=== PATIENT | female | born 1970 | race American Indian/Alaskan Native ===

== ENCOUNTER 2016-12-05 21:04 | Inpatient (IN) | payer OTHER ==
[2016-12-05] MEDS ORDERED: Sodium Chloride 0.9% 1,000 ML IV ONE (22:02)
[2016-12-05] MEDS ORDERED: Sodium Chloride 0.9% 1,000 ML ONE (22:17)
[2016-12-05 22:33] LABS: RBC URINE 1 /hpf (0-3); URINE BACTERIA RARE (<OCC); URINE BILIRUBIN NEGATIVE (NEGATIVE); URINE BLOOD NEGATIVE (NEGATIVE); URINE COLOR Yellow (YELLOW); URINE GLUCOSE (UA) NORMAL (Normal); URINE KETONE NEGATIVE (NEGATIVE); URINE LEUKOCYTE ESTERASE NEG Leu/uL (Negative); URINE PROTEIN NEGATIVE (NEGATIVE); URINE UROBILINOGEN NORMAL mg/dL (0.2-1.0); WBC URINE 2 /hpf (0-5)
[2016-12-05 22:40] LABS: EOS # 0.1 K/uL (0.0-0.7); HEMATOCRIT 44.7 % (34.0-47.0); LYMPH # 0.5 K/uL (1.0-4.3); MONO # 0.1 K/uL (0.0-0.8); NRBC % 0.3 % (0.0-2.0); RED CELL DISTRIBUTION WIDTH 13.4 % (11.5-14.5)
[2016-12-05 22:43] LABS: VENOUS BLOOD GAS BASE EXCESS 0.3 mmol/L (0.0-2.0); VENOUS BLOOD GAS PCO2 48 mmHg (40-60); VENOUS BLOOD PH 7.35 (7.32-7.43)
[2016-12-05 22:46] LABS: BASO % 0.4 % (0.0-2.0); EOS % 4.7 % (0.0-4.0); LYMPH % 32.1 % (20.0-40.0); MEAN CELL VOLUME 95.6 fL (81.0-99.0); MEAN CORPUSCULAR HEMOGLOBIN 31.3 pg (27.0-31.0); MEAN CORPUSCULAR HGB CONC 32.8 g/dL (33.0-37.0); MEAN PLATELET VOLUME 9.8 fL (7.2-11.7); MONO % 6.1 % (0.0-10.0)
[2016-12-05 22:47] LABS: INR 1.1
[2016-12-05 22:50] LABS: WHITE BLOOD COUNT 1.7 K/uL (4.8-10.8)
[2016-12-05 22:57] LABS: POTASSIUM 3.8 mmol/L (3.6-5.2)
[2016-12-05 22:59] LABS: ALB/GLOB RATIO 1.2 (1.0-2.1); BILIRUBIN,TOTAL 0.6 mg/dL (0.2-1.3)
[2016-12-05 23:00] LABS: CALCIUM 9.2 mg/dl (8.6-10.4)
[2016-12-06] MEDS ORDERED: cefTRIAXone 2 GM in Sodium Chloride 0.9% 100 ML IVPB STA (00:52)
[2016-12-06] MEDS ORDERED: Vancomycin 1 GM 1 GM/250 ML BAG IVPB STA (00:53)
[2016-12-06] MEDS ORDERED: Sodium Chloride 0.9% 1,000 ML IV ONE (00:53)
[2016-12-06 01:04] LABS: FLUID TYPE SPINAL FLUID
--- NOTE | 2016-12-06 01:13 | C.PDOC ---
Time Seen by Provider: 12/05/16 21:50 Chief Complaint (Nursing): Fever History Per: Patient, Family Onset/Duration Of Symptoms: Days (2) Current Symptoms Are (Timing): Still Present Location Of Pain: Headache Associated Symptoms: Fever, Sore Throat, Neck Pain Severity: Moderate Recent travel outside of the [place]: No Additional History Per: Prior Records Past Medical History Reviewed: Historical Data, Nursing Documentation, Vital Signs Vital Signs: Last Vital Signs Temp 102.7 F H 12/05/16 21:19 Pulse 94 H 12/05/16 21:19 Resp 20 12/05/16 21:19 BP 95/58 L 12/05/16 21:19 Pulse Ox 99 12/06/16 01:15 - Medical History PMH: No Chronic Diseases Surgical History: No Surg Hx Family History: States: Unknown Family Hx - Social History Hx Alcohol Use: No Hx Substance Use: No - Immunization History Hx Tetanus Toxoid Vaccination: No Hx Influenza Vaccination: No Hx Pneumococcal Vaccination: No Review Of Systems Except As Marked, All Systems Reviewed And Found Negative. Constitutional: Positive for: Fever, Malaise ENT: Positive for: Throat Pain. Negative for: Ear Pain, Nose Congestion Cardiovascular: Negative for: Chest Pain Respiratory: Negative for: Cough, Shortness of Breath Gastrointestinal: Negative for: Vomiting, Abdominal Pain, Diarrhea Genitourinary: Positive for: Other (Pt states that she has had a bartholyn cyst for years. her doctor recently placed her on Bactrim for it. ). Negative for: Dysuria Musculoskeletal: Positive for: Neck Pain Skin: Negative for: Rash Neurological: Positive for: Headache. Negative for: Weakness, Numbness, Seizures, Altered Mental Status Psych: Negative for: Psychosis Physical Exam - Physical Exam Appears: Non-toxic, No Acute Distress Skin: Normal Color, Warm, Dry, No Rash Head: Atraumatic, Normacephalic Eye(s): bilateral: PERRL, EOMI Ear(s): Bilateral: Normal Throat: Erythema, No Exudate, No Drooling, No Mass Neck: Normal ROM, Supple Cardiovascular: Rhythm Regular Respiratory: Normal Breath Sounds, No Accessory Muscle Use Gastrointestinal/Abdominal: Soft, No Tenderness Back: No CVA Tenderness Pelvic: Other (left bartholyn cyst, but no tenderness, drainage or surrounding erythema) Extremity: Normal ROM, No Deformity Neurological/Psych: Oriented x3, Normal Speech, Normal Motor, Normal Sensation ED Course And Treatment - Laboratory Results Result Diagrams: 12/05/16 22:36 12/05/16 22:36 Lab Interpretation: Abnormal Interpretation Of Abnormal: Low WBC count Urine POC: Negative O2 Sat by Pulse Oximetry: 99 Pulse Ox Interpretation: Normal - Radiology CXR: Interpreted by Me, Viewed By Me CXR Interpretation: Yes: No Acute Disease - CT Scan/US CT head Other Rad Studies (CT/US): Read By Radiologist, Radiology Report Reviewed CT/US Interpretation: No acute intracranial hemorrhage, or suspcioius mass effect. Lumbar Puncture - Time Out Time Out: Side verified, Site verified, Patient ID confirmed, Sterile procedures obs. - Consent obtained Consent obtained: Verbal - Performed by Performed by: Attending Physician - Indications Indication(s): Suspected menigitis - Contraindications Contraindications: None - Patient Position Patient position: Sitting - Local Anesthetic Location: L4/L5 - Fluid Appearance Fluid Appearance: Clear - Post-procedure Post-procedure: No leak/bld from LP site, Dressing applied, Patient laid flat, Neurovascular status nml - CSF Studies CSF Studies: Cell count/diff, Glucose, Protein, Gram stain, culture/sensitivity , Antigens - Complications Complications: None - Patient tolerated procedure Patient tolerated procedure: Well Disposition - Disposition Disposition Time: 01:00 Condition: FAIR - Clinical Impression Clinical Impression: Fever, Headache, Decreased white blood cell count Physician Patient Turnover Patient Signed Over To: Tyson Coello Handoff Comments: to f/up CSF results and admit pt.
[2016-12-06] MEDS ORDERED: Acyclovir 500 MG in Dextrose 5% In Water 100 ML IV STA (01:16)
[2016-12-06] MEDS ORDERED: Sodium Chloride 0.9% 1,000 ML ONE (01:44)
[2016-12-06] MEDS ORDERED: Vancomycin 1 GM 1 GM/250 ML BAG IVPB ONE ×2 (01:44→19:16)
[2016-12-06 02:37] LABS: CSF COMMENT CLEAR; CSF NEUTROPHIL 3 % (0-0); CSF TOTAL COUNT 10 (0-0)
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
--- NOTE | 2016-12-06 08:26 | CT ---
PROCEDURE: CT HEAD WITHOUT CONTRAST. HISTORY: Headache, fever COMPARISON: None available. TECHNIQUE: Axial computed tomography images were obtained through the head/brain without intravenous contrast. Radiation dose: Total exam DLP = 833 mGy-cm. This CT exam was performed using one or more of the following dose reduction techniques: Automated exposure control, adjustment of the mA and/or kV according to patient size, and/or use of iterative reconstruction technique. FINDINGS: HEMORRHAGE: No intracranial hemorrhage. BRAIN: No mass effect or edema. No atrophy or chronic microvascular ischemic changes. VENTRICLES: Unremarkable. No hydrocephalus. CALVARIUM: Unremarkable. PARANASAL SINUSES: Unremarkable as visualized. No significant inflammatory changes. MASTOID AIR CELLS: Unremarkable as visualized. No inflammatory changes. OTHER FINDINGS: None. IMPRESSION: No acute intracranial abnormality. If headache or focal neurologic deficit persists, consider MRI. These findings were preliminarily reported at 11:52 p.m. on 12/05/[address] Anna Marie Fitzpatrick from [facility].
--- NOTE | 2016-12-06 10:22 | RAD ---
HISTORY: Fever COMPARISON: No prior. FINDINGS: LUNGS: The lungs are well inflated and clear. PLEURA: No significant pleural effusion identified, no pneumothorax apparent. CARDIOVASCULAR: Normal. OSSEOUS STRUCTURES: No significant abnormalities. VISUALIZED UPPER ABDOMEN: Normal. OTHER FINDINGS: None. IMPRESSION: No active pulmonary disease.
[2016-12-06 11:32] LABS: CHLORIDE 99 mmol/L (98-107)
[2016-12-06 11:33] LABS: POTASSIUM 3.9 mmol/L (3.6-5.2); SODIUM 133 mmol/L (132-148)
[2016-12-06 11:35] LABS: ALB/GLOB RATIO 1.1 (1.0-2.1); ALKALINE PHOSPHATASE 45 U/L (38-126); AST/SGOT 50 U/L (14-36); BILIRUBIN,TOTAL 0.3 mg/dL (0.2-1.3); BLOOD UREA NITROGEN 7 mg/dL (7-17); CARBON DIOXIDE 23 mmol/L (22-30); GFR AFRICAN-AMERICAN > 60; TOTAL PROTEIN 6.2 g/dL (6.3-8.3)
[2016-12-06 11:36] LABS: ALT/SGPT 35 U/L (9-52); CALCIUM 7.8 mg/dl (8.6-10.4); GLUCOSE,RANDOM 113 mg/dL (65-105); MAGNESIUM 1.7 mg/dL (1.6-2.3); PHOSPHOROUS 2.3 mg/dL (2.5-4.5)
[2016-12-06 12:23] LABS: H INFLUENZAE B NEGATIVE (NEGATIVE); N MENINGITIS ACY/W135 NEGATIVE (NEGATIVE); N MENINGITIS B/ECOLI K1 NEGATIVE (NEGATIVE)
[2016-12-06 13:38] LABS: BASO % 0.3 % (0.0-2.0); EOS # 0.1 K/uL (0.0-0.7); HEMATOCRIT 38.4 % (34.0-47.0); LYMPH # 0.6 K/uL (1.0-4.3); LYMPH % 33.8 % (20.0-40.0); MEAN CELL VOLUME 95.1 fL (81.0-99.0); MEAN CORPUSCULAR HEMOGLOBIN 31.6 pg (27.0-31.0); MEAN CORPUSCULAR HGB CONC 33.2 g/dL (33.0-37.0); MEAN PLATELET VOLUME 10.4 fL (7.2-11.7); MONO # 0.1 K/uL (0.0-0.8); MONO % 3.8 % (0.0-10.0); NRBC % 0.3 % (0.0-2.0); RED CELL DISTRIBUTION WIDTH 13.3 % (11.5-14.5)
[2016-12-06 13:51] LABS: WHITE BLOOD COUNT 1.7 K/uL (4.8-10.8)
--- NOTE | 2016-12-06 14:32 | CP.PCM.PN ---
<Kanika Jalloh V - Last Filed: 12/06/16 17:55> Objective - Vital Signs/Intake and Output Vital Signs (last 24 hours): Temp Pulse Resp BP Pulse Ox 99.0 F 78 18 149/71 98 12/06/16 17:18 12/06/16 17:30 12/06/16 17:18 12/06/16 17:18 12/06/16 17:18 - Medications Medications: Current Medications Acetaminophen (Tylenol 325mg Tab) 650 mg PO Q6 PRN PRN Reason: Fever >100.4 F Last Admin: 12/06/16 12:57 Dose: 650 mg Sodium Chloride (Sodium Chloride 0.9%) 1,000 mls @ 100 mls/hr IV .Q10H YAYA Last Admin: 12/06/16 15:13 Dose: 100 mls/hr Ceftriaxone Sodium 1 gm/ (Sodium Chloride) 100 mls @ 100 mls/hr IVPB 2300 YAYA Saccharomyces Boulardii (Florastor) 250 mg PO BID YAYA - Labs Labs: 12/06/16 15:26 12/06/16 11:14 PT 12.8 SECONDS (9.7-12.2) H 12/05/16 22:36 INR 1.1 12/05/16 22:36 APTT 52 SECONDS (21-34) H 12/05/16 22:36 Assessment and Plan (1) SIRS (systemic inflammatory response syndrome) Assessment & Plan: Criteria: leukopenia and febrile Workup to determine if source of infection ordered for Blood cultures, Urine studies, procalcitonin, Lactic acid, ESR, CRP , LDH Tylenol 650mg PO Q 6 hour PRN 100.3F Patient completed 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 Discussed with ID, c/w Rocephin 1 gram IV qdaily, hold Acyclovir until HSV titers come back Start Florastor 250mg PO bid Status: Acute (2) Neutropenic fever Assessment & Plan: Consult: Dr Elvia Fountain (heme-onc) on board-->help appreciated Consult: Dr Hernandez (ID) on board-->help appreciated Ordered for ESR, CRP, LDH, HIV, Hepatitis panel, UDS, and Abdominal US Patient completed course of bactrim as outpatient for ovarian cyst In the ED, patient had received dose of Rocephin, Acyclovir, and Vancomycin Neutropenic precautions Status: Acute (3) Thrombocytopenia Assessment & Plan: D/c Heparin secondary to thrombocytopenia Ordered for HIT antibodies Status: Acute (4) Transaminitis Assessment & Plan: Ordered for hepatitis panel Ordered for Abdominal US Ordered for UDS Status: Acute (5) Headache Assessment & Plan: Consult: A Curtis (Neurology) on board-->help appreciated Per neurology, likely secondary to viral prodrome, not bacterial meningitis, LP consistent with mild viral syndrome Head CT (12/06/16): no acute intracranial abnormality, if headache or focal neurologic deficit persists, consider MRI Recommended for Aspirin (will hold secondary to thrombocytopenia) Fioricet 1-2 tab PRN for acute onset of headache Neutopenic precautions; f/u heme-onc Status: Acute (6) Viral syndrome Assessment & Plan: Consult: A Curtis (Neurology) on board-->help appreciated Per neurology, likely secondary to viral prodrome, not bacterial meningitis, LP consistent with mild viral syndrome Head CT (12/06/16): no acute intracranial abnormality, if headache or focal neurologic deficit persists, consider MRI Recommended for Aspirin (will hold secondary to thrombocytopenia) Fioricet 1-2 tab PRN for acute onset of headache Neutopenic precautions; f/u heme-onc Status: Acute (7) Prophylactic measure Assessment & Plan: D/c Heparin secondary to thrombocytopenia D/c GI ppx secondary to SE worsening thrombocytopenia Status: Acute Attending/Attestation - Attestation I have personally seen and examined this patient.: Yes I have fully participated in the care of the patient.: Yes I have reviewed all pertinent clinical information, including history, physical exam and plan: Yes <Alphonso Frances - Last Filed: 12/06/16 20:52> Subjective - Date & Time of Evaluation Date of Evaluation: 12/06/16 Time of Evaluation: 10:00 - Subjective Subjective: Medicine Note (PGY1) : Dr. Jalloh's Service Patient was seen and examined in ED. Patient states she is doing better. Patient reports migraine in the right temporal region, photophobia, malaise, fever, sore throat and that her neck pain has resolved. Patient denies chest pain, nausea, vomiting, back pain, flank pain, diarrhea, recent travels, urinary symptoms. sick contacts but does admit to being around her 2 year old grandchild. Objective - Vital Signs/Intake and Output Vital Signs (last 24 hours): Temp Pulse Resp BP Pulse Ox 100 F H 89 18 96/58 L 99 12/06/16 12:57 12/06/16 12:17 12/06/16 12:17 12/06/16 12:17 12/06/16 12:17 - Medications Medications: Current Medications Acetaminophen (Tylenol 325mg Tab) 650 mg PO Q6 PRN PRN Reason: Fever >100.4 F Last Admin: 12/06/16 12:57 Dose: 650 mg Famotidine (Pepcid) 20 mg PO BID [facility] Last Admin: 12/06/16 10:31 Dose: 20 mg Heparin Sodium (Porcine) (Heparin) 5,000 units SC Q8 [facility] Last Admin: 12/06/16 06:09 Dose: 5,000 units Ceftriaxone Sodium 1 gm/ (Sodium Chloride) 100 mls @ 100 mls/hr IVPB DAILY [facility] - Labs Labs: 12/06/16 13:18 12/06/16 11:14 PT 12.8 SECONDS (9.7-12.2) H 12/05/16 22:36 INR 1.1 12/05/16 22:36 APTT 52 SECONDS (21-34) H 12/05/16 22:36 - Constitutional Appears: Well, No Acute Distress - Head Exam Head Exam: NORMAL INSPECTION, NORMOCEPHALIC - Eye Exam Eye Exam: EOMI, Normal appearance - ENT Exam ENT Exam: Mucous Membranes Moist, Normal Exam - Respiratory Exam Respiratory Exam: Clear to Ausculation Bilateral, NORMAL BREATHING PATTERN - Cardiovascular Exam Cardiovascular Exam: REGULAR RHYTHM, +S1, +S2 - GI/Abdominal Exam GI & Abdominal Exam: Soft, Normal Bowel Sounds - Extremities Exam Extremities Exam: Normal Capillary Refill, Normal Inspection - Neurological Exam Neurological Exam: Alert, Awake, Oriented x3 - Psychiatric Exam Psychiatric exam: Normal Affect, Normal Mood - Skin Skin Exam: Dry, Normal Color, Warm Assessment and Plan (1) Fever Assessment & Plan: Hematology and Oncology Consult (Dr. Fountain) ---> help appreciated Neurology consult (Dr. Jerica Acevedo): * As per neurology, headache is secondary to a viral prodrome not bacterial meningitis * ASA 81MG PO daily * Monitor electrolytes and correct accordingly * Fioricet 1-2 tab at acute onset of headache prn Infectious disease consult (Dr. Hernandez)---> help appreciated * No evidence of encephalopathy at this time * may d/c antibiotics if cultures negative Neutropenic precautions: * HIV (Negative) * Hepatitis panel (Negative) * Influenza (Negative) * H. Influenza (Negative) * Meningitis (Negative) * ESR (1), CRP(5.92), LDH(875) Lumbar Puncture in the ED: ( Negative) CT Head: Negative for Intracranial hemorrhage, mass or edema and no atrophy chronic microvascular Chest X-ray: No evidence of active disease IV fluids: NS 1000ml @100cc/hr Acetaminophen 650mg PO Q6 prn Acyclovir 500mg IV q8h Rocephin 2mg Q12H Vancomycin 1000mg IVBP Q12H Status: Acute (2) Encephalitis Assessment & Plan: CT Head: Negative for Intracranial hemorrhage, mass or edema Neurology consult (Dr. Jerica Acevedo): * As per neurology, headache is secondary to a viral prodrome not bacterial meningitis * ASA 81MG PO daily * Monitor electrolytes and correct accordingly * Fioricet 1-2 tab at acute onset of headache prn Status: Acute (3) Neutropenic fever Assessment & Plan: Hematology and Oncology consulted (Dr. Fountain)---> Help appreciated Infectious disease consult (Dr. Hernandez)---> help appreciated * No evidence of encephalopathy at this time * may d/c antibiotics if cultures negative HIV (Negative) Hepatitis panel (Negative) Influenza (Negative) H. Influenza (Negative) Meningitis (Negative) ESR (1), CRP(5.92), LDH(875) Patient recently completed a week course of Bactrim for Ovarian cyst Pending blood culture results, l Lactic acid: 1.0 Procalcitonin: <0.05 UA: negative for UTI Status: Acute (4) Sepsis Assessment & Plan: Meet SIRS criteria: Fever : 102 Neutropenic: 1.7 Acyclovir 500mg IV q8h Rocephin 2mg Q12H Vancomycin 1000mg IVBP Q12H Status: Acute (5) Transaminitis Assessment & Plan: Abdominal US: The gall bladder is partially contracted. No Cholelithiasis or bililary dilatation Hepatitis panel (Negative) UDS negative Status: Acute (6) Sore throat Assessment & Plan: Chest X-ray: No evidence of active disease Group A Beta Strep Ag : Negative Group B strep antigen : Negative S. Pneumoniae Anitgen : Negative Status: Acute (7) Prophylactic measure Assessment & Plan: Florastor 250mg PO BID Status: Acute
[2016-12-06] MEDS ORDERED: cefTRIAXone IV 1 gm in Dextros 50 ML IVPB ONE (14:41)
[2016-12-06] MEDS: Sodium Chloride 0.9% 1,000 ML IV SCH (15:13)
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
[2016-12-06 15:43] LABS: BASO % 0.6 % (0.0-2.0); EOS # 0.1 K/uL (0.0-0.7); EOS % 8.7 % (0.0-4.0); HEMATOCRIT 38.1 % (34.0-47.0); LYMPH # 0.5 K/uL (1.0-4.3); MEAN CELL VOLUME 95.2 fL (81.0-99.0); MEAN CORPUSCULAR HEMOGLOBIN 31.4 pg (27.0-31.0); MEAN PLATELET VOLUME 10.1 fL (7.2-11.7); MONO # 0.1 K/uL (0.0-0.8); MONO % 3.5 % (0.0-10.0)
[2016-12-06 15:51] LABS: WHITE BLOOD COUNT 1.7 K/uL (4.8-10.8)
--- NOTE | 2016-12-06 16:28 | US ---
HISTORY: Elevated LFTs COMPARISON: None. TECHNIQUE: Grayscale imaging was performed. FINDINGS: LIVER: Measures 14.21 cm. Normal echogenicity of the liver parenchyma. No mass. No intrahepatic bile duct dilatation. GALLBLADDER: Partially contracted. No gallstones. COMMON BILE DUCT: Measures 2.1 mm. No stones. No dilatation. PANCREAS: Unremarkable as visualized. No mass. No ductal dilatation. RIGHT KIDNEY: Measures 9.9cm. Normal echogenicity. No calculus, mass, or hydronephrosis. LEFT KIDNEY: Measures 10.0cm. Normal echogenicity. No calculus, mass, or hydronephrosis. SPLEEN: Normal in size and contour. No mass. AORTA: No aneurysmal dilatation. IVC: Unremarkable. OTHER FINDINGS: None. IMPRESSION: The gallbladder is partially contracted. No cholelithiasis or biliary dilatation.
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
[2016-12-06 19:06] LABS: INR 1.1
[2016-12-06] MEDS: Saccharomyces Boulardi 250 mg Cap PO SCH (22:29)
[2016-12-06] MEDS: Acyclovir 500 MG in Sodium Chloride 0.9% 100 ML IV SCH (22:30)
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
[2016-12-07] MEDS: Acyclovir 500 MG in Sodium Chloride 0.9% 100 ML IV SCH ×3 (02:13→18:35)
[2016-12-07] MEDS: Sodium Chloride 0.9% 1,000 ML IV SCH ×2 (02:15→11:15)
[2016-12-07] MEDS: cefTRIAXone 2 GM in Sodium Chloride 0.9% 100 ML IVPB SCH ×2 (02:17→13:43)
[2016-12-07 06:16] LABS: RBC URINE < 1 /hpf (0-3); URINE BACTERIA RARE (<OCC); URINE BILIRUBIN NEGATIVE (NEGATIVE); URINE BLOOD 2+ (NEGATIVE); URINE COLOR Straw (YELLOW); URINE GLUCOSE (UA) NORMAL (Normal); URINE KETONE NEGATIVE (NEGATIVE); URINE LEUKOCYTE ESTERASE NEG Leu/uL (Negative); URINE PROTEIN NEGATIVE (NEGATIVE); URINE UROBILINOGEN NORMAL mg/dL (0.2-1.0); WBC URINE 1 /hpf (0-5)
[2016-12-07] MEDS: Saccharomyces Boulardi 250 mg Cap PO SCH ×2 (09:43→18:35)
--- NOTE | 2016-12-07 11:10 | RAD ---
HISTORY: Fever COMPARISON: No prior. TECHNIQUE: Chest PA and lateral FINDINGS: LUNGS: No active pulmonary disease. Bibasilar breast and nipple shadows. Small nodular density at the right lung apex may represent confluence of shadows with ribs and vessels. PLEURA: No significant pleural effusion identified. No pneumothorax apparent. CARDIOVASCULAR: Normal. OSSEOUS STRUCTURES: No significant abnormalities. VISUALIZED UPPER ABDOMEN: Normal. OTHER FINDINGS: None. IMPRESSION: No active pulmonary disease. Bibasilar breast and nipple shadows. Small nodular density at the right lung apex may represent confluence of shadows with ribs and vessels.
[2016-12-07 12:08] LABS: BASO % 0.5 % (0.0-2.0); EOS # 0.1 K/uL (0.0-0.7); EOS % 7.8 % (0.0-4.0); HEMATOCRIT 38.1 % (34.0-47.0); LYMPH # 1.2 K/uL (1.0-4.3); LYMPH % 62.9 % (20.0-40.0); MEAN CELL VOLUME 94.5 fL (81.0-99.0); MEAN CORPUSCULAR HEMOGLOBIN 31.4 pg (27.0-31.0); MEAN CORPUSCULAR HGB CONC 33.3 g/dL (33.0-37.0); MEAN PLATELET VOLUME 9.5 fL (7.2-11.7); MONO # 0.1 K/uL (0.0-0.8); MONO % 7.1 % (0.0-10.0); NRBC % 0.2 % (0.0-2.0); RED CELL DISTRIBUTION WIDTH 13.1 % (11.5-14.5)
[2016-12-07 12:13] LABS: WHITE BLOOD COUNT 1.9 K/uL (4.8-10.8)
[2016-12-07 12:35] LABS: CHLORIDE 103 mmol/L (98-107); SODIUM 136 mmol/L (132-148)
[2016-12-07 12:37] LABS: ALB/GLOB RATIO 1.1 (1.0-2.1); AST/SGOT 53 U/L (14-36); BILIRUBIN,TOTAL 0.3 mg/dL (0.2-1.3); CARBON DIOXIDE 25 mmol/L (22-30); GFR AFRICAN-AMERICAN > 60; TOTAL PROTEIN 6.2 g/dL (6.3-8.3)
[2016-12-07 12:38] LABS: ALKALINE PHOSPHATASE 38 U/L (38-126); ALT/SGPT 32 U/L (9-52); BLOOD UREA NITROGEN 4 mg/dL (7-17); CALCIUM 8.1 mg/dl (8.6-10.4); GLUCOSE,RANDOM 114 mg/dL (65-105); MAGNESIUM 1.9 mg/dL (1.6-2.3); PHOSPHOROUS 2.7 mg/dL (2.5-4.5)
--- NOTE | 2016-12-07 13:30 | CP.PCM.PN ---
<Kanika Jalloh V - Last Filed: 12/07/16 22:26> Objective - Vital Signs/Intake and Output Vital Signs (last 24 hours): Temp Pulse Resp BP Pulse Ox 98 F 68 20 101/61 99 12/07/16 16:00 12/07/16 18:44 12/07/16 18:44 12/07/16 18:44 12/07/16 18:44 Intake and Output: 12/07/16 12/08/16 18:59 06:59 Intake Total 1300 Output Total 600 Balance 700 - Medications Medications: Current Medications Acetaminophen/Butalbital/Caffeine (Fioricet) 1 tab PO Q6 PRN PRN Reason: headache Last Admin: 12/07/16 16:14 Dose: 1 tab Sodium Chloride (Sodium Chloride 0.9%) 1,000 mls @ 100 mls/hr IV .Q10H [facility] Last Admin: 12/07/16 11:15 Dose: Not Given Acyclovir 500 mg/ Sodium (Chloride) 100 mls @ 100 mls/hr IV Q8H [facility] Last Admin: 12/07/16 18:35 Dose: 100 mls/hr Vancomycin HCl 1,000 mg/ (Sodium Chloride) 250 mls @ 166.6 mls/hr IVPB Q12H [facility] Last Admin: 12/07/16 20:13 Dose: 166.6 mls/hr Ceftriaxone Sodium 2 gm/ (Sodium Chloride) 100 mls @ 100 mls/hr IVPB Q12H [facility] Last Admin: 12/07/16 13:43 Dose: 100 mls/hr Saccharomyces Boulardii (Florastor) 250 mg PO BID [facility] Last Admin: 12/07/16 18:35 Dose: 250 mg - Labs Labs: 12/07/16 11:55 12/07/16 11:55 PT 12.5 SECONDS (9.7-12.2) H 12/06/16 18:49 INR 1.1 12/06/16 18:49 APTT 52 SECONDS (21-34) H 12/05/16 22:36 Assessment and Plan (1) SIRS (systemic inflammatory response syndrome) Status: Acute (2) Neutropenic fever Status: Acute (3) Thrombocytopenia Status: Acute (4) Transaminitis Status: Acute (5) Headache Status: Acute (6) Viral syndrome Status: Acute (7) Prophylactic measure Status: Acute Attending/Attestation - Attestation I have personally seen and examined this patient.: Yes I have fully participated in the care of the patient.: Yes I have reviewed all pertinent clinical information, including history, physical exam and plan: Yes Notes (Text): Patient seen, examined, and case discussed with day-time application internship. Patient seen at bedside this afternoon. Patient reporting headache but received Fiorcet shortly after my arrival. Patient denies other acute complaints except for abnormal vaginal bleeding. Patient reports she finished her period about 4 days ago and is normally regular but her period has started up again. Patient's Tmax: 100.6 F from yesterday evening. She has remained afebrile during the day. Patient noted to completing Bactrim for ovarian cyst prior to coming hospital, may explain neutropenia. Discussed heme-onc (Dr Dwight Fountain), possible recommendation for bone marrow biopsy ; will discuss with the patient at bedside Review of blood cultures are negative X24 hours, CSF negative, and urine culture shows no growth. Per ID, recommend to d/c antibiotics if cultures remain negative. Patient ordered for pelvic/transvaginal US for abnormal vaginally bleeding; will consider internet project manager consult following imaging Patient to continue IV fluids. Assessment/Plan (1) SIRS (systemic inflammatory response syndrome) Assessment & Plan: Criteria: leukopenia and febrile Workup to determine if source of infection Blood cultures: negative for 24 hours, Urine culture: no growth, procalcitonin : low, Lactic acid: 1.0, ESR: 1, CRP: elevated, LDH: elevated Tylenol 650mg PO Q 6 hour PRN 100.3F Patient completed Bactrim for ovarian cyst with her outpatient OB-internet project manager prior to admission In the ED on admission, received dose of Rocephin, Acyclovir, and Vancomycin. Per ID, patient is on Rocephin, Acyclovir and Vancomcyin, may discontinue if cultures are negative Start Florastor 250mg PO bid Status: Acute (2) Neutropenic fever Assessment & Plan: Consult: Dr Elvia Fountain (heme-onc) on board-->help appreciated Consult: Dr Hernandez (ID) on board-->help appreciated ESR (1), CRP (elevated), LDH (elevated), HIV (negative), Hepatitis panel ( negative), UDS (negative), and Abdominal US Patient completed course of bactrim as outpatient for ovarian cyst Per ID, patient is on Rocephin, Acyclovir and Vancomcyin, may discontinue if cultures are negative Neutropenic precautions Patient is afebrile for almost 24 hours. Patient to have bone marrow biopsy even severe neutropenia today Status: Acute (3) Pancytopenia Assessment & Plan: Consult: Dr Elvia Fountain (heme-onc) on board-->help appreciated Neutrophils downtrending; severe Possible drug effect; recently completed bactrim Bone marrow biopsy recommended by gelacioonc Status: Acute (4) Thrombocytopenia Assessment & Plan: D/c Heparin secondary to thrombocytopenia Ordered for HIT antibodies Mild improving Status: Acute (5) Transaminitis Assessment & Plan: hepatitis panel: negative Abdominal US: gallbladder partially contracted. No cholelithiasis nor biliary dilatation UDS: negative Status: Acute (6) Headache Assessment & Plan: Consult: Jerica Acevedo (Neurology) on board-->help appreciated Per neurology, likely secondary to viral prodrome, not bacterial meningitis, LP consistent with mild viral syndrome Head CT (12/06/16): no acute intracranial abnormality, if headache or focal neurologic deficit persists, consider MRI Recommended for Aspirin (will hold secondary to thrombocytopenia) Fioricet 1-2 tab PRN for acute onset of headache Neutopenic precautions Continue to monitor Status: Acute (7) Viral syndrome Assessment & Plan: Consult: Jerica Acevedo (Neurology) on board-->help appreciated Per neurology, likely secondary to viral prodrome, not bacterial meningitis, LP consistent with mild viral syndrome Head CT (12/06/16): no acute intracranial abnormality, if headache or focal neurologic deficit persists, consider MRI Recommended for Aspirin (will hold secondary to thrombocytopenia) Fioricet 1-2 tab PRN for acute onset of headache Neutopenic precautions; f/u heme-onc Afebrile for 24 hours Status: Acute (8) Prophylactic measure Assessment & Plan: D/c Heparin secondary to thrombocytopenia D/c GI ppx secondary to SE worsening thrombocytopenia Status: Acute <Alphonso Frances - Last Filed: 12/07/16 22:54> Subjective - Date & Time of Evaluation Date of Evaluation: 12/07/16 Time of Evaluation: 09:50 - Subjective Subjective: Medicine Note (PGY1) : Dr. Jalloh's Service Patient was seen and examined in ED. Patient states she is doing better. Patient still reports headache and photophobia and malaise but denies neck pain , fever, chills, nausea, vomiting, diarrhea, abd pain. Objective - Vital Signs/Intake and Output Vital Signs (last 24 hours): Temp Pulse Resp BP Pulse Ox 98.4 F 74 20 99/60 L 100 12/07/16 07:33 12/07/16 07:33 12/07/16 07:33 12/07/16 07:33 12/07/16 07:33 Intake and Output: 12/07/16 12/07/16 06:59 18:59 Intake Total 1690 Balance 1690 - Medications Medications: Current Medications Acetaminophen/Butalbital/Caffeine (Fioricet) 1 tab PO Q6 PRN PRN Reason: headache Sodium Chloride (Sodium Chloride 0.9%) 1,000 mls @ 100 mls/hr IV .Q10H [facility] Last Admin: 12/07/16 02:15 Dose: 100 mls/hr Acyclovir 500 mg/ Sodium (Chloride) 100 mls @ 100 mls/hr IV Q8H [facility] Last Admin: 12/07/16 10:59 Dose: 100 mls/hr Vancomycin HCl 1,000 mg/ (Sodium Chloride) 250 mls @ 166.6 mls/hr IVPB Q12H [facility] Last Admin: 12/07/16 06:03 Dose: 166.6 mls/hr Ceftriaxone Sodium 2 gm/ (Sodium Chloride) 100 mls @ 100 mls/hr IVPB Q12H [facility] Last Admin: 12/07/16 02:17 Dose: 100 mls/hr Saccharomyces Boulardii (Florastor) 250 mg PO BID [facility] Last Admin: 12/07/16 09:43 Dose: 250 mg - Labs Labs: 12/07/16 11:55 12/07/16 11:55 PT 12.5 SECONDS (9.7-12.2) H 12/06/16 18:49 INR 1.1 12/06/16 18:49 APTT 52 SECONDS (21-34) H 12/05/16 22:36 - Constitutional Appears: Well - Head Exam Head Exam: NORMAL INSPECTION, NORMOCEPHALIC - Eye Exam Eye Exam: EOMI, Normal appearance - ENT Exam ENT Exam: Mucous Membranes Moist, Normal Exam - Respiratory Exam Respiratory Exam: Clear to Ausculation Bilateral, NORMAL BREATHING PATTERN - Cardiovascular Exam Cardiovascular Exam: REGULAR RHYTHM, +S1, +S2 - GI/Abdominal Exam GI & Abdominal Exam: Soft, Normal Bowel Sounds - Extremities Exam Extremities Exam: Normal Capillary Refill, Normal Inspection - Neurological Exam Neurological Exam: Alert, Awake, Oriented x3 - Psychiatric Exam Psychiatric exam: Normal Affect, Normal Mood - Skin Skin Exam: Dry, Normal Color, Warm Assessment and Plan (1) Fever Assessment & Plan: Afebrile (12/07/16 at 98) Hematology and Oncology Consult (Dr. Fountain) ---> help appreciated * Bone marrow procedure today (12/07/16) Neurology consult (Dr. Jerica Acevedo): As per neurology, headache is secondary to a viral prodrome not bacterial meningitis * ASA 81MG PO daily * Monitor electrolytes and correct accordingly * Fioricet 1-2 tab at acute onset of headache prn - Started on Fioricet 1 tab Q6H Infectious disease consult (Dr. Hernandez)---> help appreciated * No evidence of encephalopathy at this time * may d/c antibiotics if cultures negative Neutropenic precautions: * HIV (Negative) * Hepatitis panel (Negative) * Influenza (Negative) * H. Influenza (Negative) * Meningitis (Negative) * ESR (1), CRP(5.92), LDH(875) Lumbar Puncture in the ED: ( Negative) CT Head: Negative for Intracranial hemorrhage, mass or edema and no atrophy chronic microvascular Chest X-ray: No evidence of active disease IV fluids: NS 1000ml @100cc/hr Acetaminophen 650mg PO Q6 prn Acyclovir 500mg IV q8h Rocephin 2mg Q12H Vancomycin 1000mg IVBP Q12H Status: Acute (2) Encephalitis Assessment & Plan: CT Head: Negative for Intracranial hemorrhage, mass or edema Neurology consult (Dr. Jerica Acevedo): * As per neurology, headache is secondary to a viral prodrome not bacterial meningitis * ASA 81MG PO daily * Monitor electrolytes and correct accordingly * Fioricet 1-2 tab at acute onset of headache prn - started today at 1 tab q6h Status: Acute (3) Neutropenic fever Assessment & Plan: Ongoing, neutropenia, pancytopenia is severe Hematology and Oncology consulted (Dr. Fountain)---> Help appreciated * Bone marrow procedure (12/07/16) Infectious disease consult (Dr. Hernandez)---> help appreciated * No evidence of encephalopathy at this time * october d/c antibiotics if cultures negative HIV (Negative) Hepatitis panel (Negative) Influenza (Negative) H. Influenza (Negative) Meningitis (Negative) ESR (1), CRP(5.92), LDH(875) Patient recently completed a week course of Bactrim for Ovarian cyst Pending blood culture results, l Lactic acid: 1.0 Procalcitonin: <0.05 UA: negative for UTI Status: Acute (4) Sepsis Assessment & Plan: Meet SIRS criteria: Fever : 102 Neutropenic: 1.7 Acyclovir 500mg IV q8h Rocephin 2mg Q12H Vancomycin 1000mg IVBP Q12H Status: Acute (5) Transaminitis Assessment & Plan: Abdominal US: The gall bladder is partially contracted. No Cholelithiasis or bililary dilatation Hepatitis panel (Negative) UDS negative AST: 53 Status: Acute (6) Sore throat Assessment & Plan: Chest X-ray: No evidence of active disease Group A Beta Strep Ag : Negative Group B strep antigen : Negative S. Pneumoniae Anitgen : Negative Status: Acute (7) Prophylactic measure Assessment & Plan: Florastor 250mg PO BID Status: Acute Status: Acute
[2016-12-07] MEDS: Apap-Butalbital-Caffeine 325-50-40mg Tab PO PRN (16:14)
[2016-12-07] MEDS ORDERED: Lidocaine 2% Inj (20ml) INFIL ONE (16:56)
--- NOTE | 2016-12-07 18:34 | CP.PCM.PN ---
Subjective - Date & Time of Evaluation Date of Evaluation: 12/07/16 Time of Evaluation: 17:00 - Subjective Subjective: Bone marrow aspiration and biopsy procedure Indication: Pancytopenia - Time-out was called to confirm: patients name and date of , procedure, side and site of biopsy, safety procedures followed. - Performed by: self. - Informed consent: signed by patient. - Aspiration and biopsy site: [left] superior posterior iliac crest. - Patient position: [right lateral decubitus] - Preparation and technique: sterile preparation of site with Betadyne, Chloraprep, draped to expose aspirate/biopsy area, local anesthesia with 2% lidocaine (approximately 10ml), frequent pressure application on incision to maintain hemostasis. - Tissue obtained: bone marrow aspirate and biopsy were successfully obtained in sterile manner. - Toleration of procedure and any complications: slight localized bleeding (<1ml ). Patient tolerated procedure well with minimal pain. Objective - Vital Signs/Intake and Output Vital Signs (last 24 hours): Temp Pulse Resp BP Pulse Ox 98 F 64 20 101/49 L 98 12/07/16 16:00 12/07/16 17:23 12/07/16 16:00 12/07/16 17:23 12/07/16 17:23 Intake and Output: 12/07/16 12/07/16 06:59 18:59 Intake Total 1690 1300 Output Total 600 Balance 1690 700 - Medications Medications: Current Medications Acetaminophen/Butalbital/Caffeine (Fioricet) 1 tab PO Q6 PRN PRN Reason: headache Last Admin: 12/07/16 16:14 Dose: 1 tab Sodium Chloride (Sodium Chloride 0.9%) 1,000 mls @ 100 mls/hr IV .Q10H [facility] Last Admin: 12/07/16 11:15 Dose: Not Given Acyclovir 500 mg/ Sodium (Chloride) 100 mls @ 100 mls/hr IV Q8H [facility] Last Admin: 12/07/16 10:59 Dose: 100 mls/hr Vancomycin HCl 1,000 mg/ (Sodium Chloride) 250 mls @ 166.6 mls/hr IVPB Q12H [facility] Last Admin: 12/07/16 06:03 Dose: 166.6 mls/hr Ceftriaxone Sodium 2 gm/ (Sodium Chloride) 100 mls @ 100 mls/hr IVPB Q12H [facility] Last Admin: 12/07/16 13:43 Dose: 100 mls/hr Saccharomyces Boulardii (Florastor) 250 mg PO BID [facility] Last Admin: 12/07/16 09:43 Dose: 250 mg - Labs Labs: 12/07/16 11:55 12/07/16 11:55 PT 12.5 SECONDS (9.7-12.2) H 12/06/16 18:49 INR 1.1 12/06/16 18:49 APTT 52 SECONDS (21-34) H 12/05/16 22:36 - Head Exam Head Exam: ATRAUMATIC - Eye Exam Eye Exam: Normal appearance - ENT Exam ENT Exam: Mucous Membranes Dry - Respiratory Exam Respiratory Exam: NORMAL BREATHING PATTERN - Cardiovascular Exam Cardiovascular Exam: +S1, +S2 - GI/Abdominal Exam GI & Abdominal Exam: Normal Bowel Sounds - Extremities Exam Extremities Exam: Normal Inspection Assessment and Plan (1) Neutropenia Status: Acute (2) Thrombocytopenia Status: Acute
[2016-12-08] MEDS: cefTRIAXone 2 GM in Sodium Chloride 0.9% 100 ML IVPB SCH ×2 (01:06→14:00)
[2016-12-08] MEDS: Acyclovir 500 MG in Sodium Chloride 0.9% 100 ML IV SCH ×2 (02:13→11:17)
[2016-12-08 06:36] LABS: CHLORIDE URINE 50 mmol/L (32-290)
[2016-12-08 06:42] LABS: BASO % 0.7 % (0.0-2.0); EOS # 0.1 K/uL (0.0-0.7); EOS % 6.1 % (0.0-4.0); HEMATOCRIT 36.4 % (34.0-47.0); LYMPH # 1.5 K/uL (1.0-4.3); LYMPH % 67.7 % (20.0-40.0); MEAN CELL VOLUME 94.9 fL (81.0-99.0); MEAN CORPUSCULAR HEMOGLOBIN 31.3 pg (27.0-31.0); MEAN CORPUSCULAR HGB CONC 32.9 g/dL (33.0-37.0); MEAN PLATELET VOLUME 10.2 fL (7.2-11.7); MONO # 0.2 K/uL (0.0-0.8); MONO % 9.2 % (0.0-10.0); NRBC % 0.3 % (0.0-2.0); RED CELL DISTRIBUTION WIDTH 13.3 % (11.5-14.5); WHITE BLOOD COUNT 2.3 K/uL (4.8-10.8)
[2016-12-08] MEDS: Sodium Chloride 0.9% 1,000 ML IV SCH ×2 (07:15→17:47)
[2016-12-08 07:31] LABS: CHLORIDE 104 mmol/L (98-107); SODIUM 137 mmol/L (132-148)
[2016-12-08 07:33] LABS: BILIRUBIN,TOTAL 0.3 mg/dL (0.2-1.3); CARBON DIOXIDE 25 mmol/L (22-30); GFR AFRICAN-AMERICAN > 60
[2016-12-08 07:34] LABS: ALB/GLOB RATIO 1.1 (1.0-2.1); ALKALINE PHOSPHATASE 36 U/L (38-126); ALT/SGPT 36 U/L (9-52); AST/SGOT 46 U/L (14-36); BLOOD UREA NITROGEN 5 mg/dL (7-17); CALCIUM 7.9 mg/dl (8.6-10.4); GLUCOSE,RANDOM 90 mg/dL (65-105); MAGNESIUM 2.1 mg/dL (1.6-2.3); PHOSPHOROUS 3.2 mg/dL (2.5-4.5)
[2016-12-08] MEDS: Apap-Butalbital-Caffeine 325-50-40mg Tab PO PRN ×2 (09:15→14:52)
[2016-12-08] MEDS: Saccharomyces Boulardi 250 mg Cap PO SCH ×2 (10:00→17:46)
--- NOTE | 2016-12-08 10:05 | CP.PCM.PN ---
<Juan DanielNinajackelyn Gaviria - Last Filed: 12/08/16 19:18> Subjective - Date & Time of Evaluation Date of Evaluation: 12/08/16 Time of Evaluation: 10:00 - Subjective Subjective: Medicine Note (PGY1) : Dr. Rivas's Service Patient was seen and examined in ED. Patient states she is doing better. Patient reports that fioricet has alleviated her headache's symptoms moderately. Patient denies photophobia, malaise, neck pain, fever, chills, nausea, vomiting, diarrhea, abd pain. Patient reports that she is doing better. Objective - Vital Signs/Intake and Output Vital Signs (last 24 hours): Temp Pulse Resp BP Pulse Ox 97.4 F L 69 20 101/61 97 12/08/16 07:47 12/08/16 07:47 12/08/16 07:47 12/08/16 07:47 12/08/16 07:47 Intake and Output: 12/08/16 12/08/16 06:59 18:59 Intake Total 2290 Balance 2290 - Medications Medications: Current Medications Acetaminophen/Butalbital/Caffeine (Fioricet) 1 tab PO Q6 PRN PRN Reason: headache Last Admin: 12/07/16 16:14 Dose: 1 tab Sodium Chloride (Sodium Chloride 0.9%) 1,000 mls @ 100 mls/hr IV .Q10H [facility] Last Admin: 12/07/16 11:15 Dose: Not Given Acyclovir 500 mg/ Sodium (Chloride) 100 mls @ 100 mls/hr IV Q8H [facility] Last Admin: 12/08/16 02:13 Dose: 100 mls/hr Vancomycin HCl 1,000 mg/ (Sodium Chloride) 250 mls @ 166.6 mls/hr IVPB Q12H [facility] Last Admin: 12/08/16 06:24 Dose: 166.6 mls/hr Ceftriaxone Sodium 2 gm/ (Sodium Chloride) 100 mls @ 100 mls/hr IVPB Q12H [facility] Last Admin: 12/08/16 01:06 Dose: 100 mls/hr Saccharomyces Boulardii (Florastor) 250 mg PO BID [facility] Last Admin: 12/07/16 18:35 Dose: 250 mg - Labs Labs: 12/08/16 06:20 12/08/16 06:20 PT 12.5 SECONDS (9.7-12.2) H 12/06/16 18:49 INR 1.1 12/06/16 18:49 APTT 52 SECONDS (21-34) H 12/05/16 22:36 - Constitutional Appears: Well, No Acute Distress - Head Exam Head Exam: NORMAL INSPECTION, NORMOCEPHALIC - Eye Exam Eye Exam: EOMI, Normal appearance - ENT Exam ENT Exam: Mucous Membranes Moist, Normal Exam - Respiratory Exam Respiratory Exam: Clear to Ausculation Bilateral, NORMAL BREATHING PATTERN - Cardiovascular Exam Cardiovascular Exam: REGULAR RHYTHM, +S1, +S2 - GI/Abdominal Exam GI & Abdominal Exam: Soft, Normal Bowel Sounds - Extremities Exam Extremities Exam: Normal Capillary Refill, Normal Inspection - Neurological Exam Neurological Exam: Alert, Awake, Oriented x3 - Psychiatric Exam Psychiatric exam: Normal Affect, Normal Mood - Skin Skin Exam: Dry, Normal Color, Warm Assessment and Plan (1) Fever Assessment & Plan: Afebrile (12/07/16 at 98) ---> continues to be afebrile Hematology and Oncology Consult (Dr. Fountain) ---> help appreciated * Pending Bone marrow procedure's result Neurology consult (Dr. Jerica Acevedo): As per neurology, headache is secondary to a viral prodrome not bacterial meningitis * ASA 81MG PO daily * Monitor electrolytes and correct accordingly * Fioricet 1-2 tab at acute onset of headache prn - Started on Fioricet 1 tab Q6H Infectious disease consult (Dr. Hernandez)---> help appreciated * No evidence of encephalopathy at this time * may d/c antibiotics if cultures negative Neutropenic precautions: * HIV (Negative) * Hepatitis panel (Negative) * Influenza (Negative) * H. Influenza (Negative) * Meningitis (Negative) * ESR (1), CRP(5.92), LDH(875) Lumbar Puncture in the ED: ( Negative) CT Head: Negative for Intracranial hemorrhage, mass or edema and no atrophy chronic microvascular Chest X-ray: No evidence of active disease IV fluids: NS 1000ml @100cc/hr Acetaminophen 650mg PO Q6 prn Acyclovir 500mg IV q8h Rocephin 2mg Q12H Vancomycin 1000mg IVBP Q12H Status: Acute (2) Encephalitis Assessment & Plan: CT Head: Negative for Intracranial hemorrhage, mass or edema Neurology consult (Dr. Jerica Acevedo): * As per neurology, headache is secondary to a viral prodrome not bacterial meningitis * ASA 81MG PO daily * Monitor electrolytes and correct accordingly * Fioricet 1-2 tab at acute onset of headache prn - started today at 1 tab q6h * Patient continues to be oriented to time, place, people. Status: Acute (3) Neutropenic fever Assessment & Plan: Ongoing, neutropenia, pancytopenia is severe but remains Afebrile Hematology and Oncology consulted (Dr. Fountain)---> Help appreciated * Bone marrow procedure (12/07/16) Infectious disease consult (Dr. Hernandez)---> help appreciated * No evidence of encephalopathy at this time * may d/c antibiotics if cultures negative HIV (Negative) Hepatitis panel (Negative) Influenza (Negative) H. Influenza (Negative) Meningitis (Negative) ESR (1), CRP(5.92), LDH(875) Patient recently completed a week course of Bactrim for Ovarian cyst Pending blood culture results, l Lactic acid: 1.0 Procalcitonin: <0.05 UA: negative for UTI Status: Acute (4) Transaminitis Assessment & Plan: Abdominal US: The gall bladder is partially contracted. No Cholelithiasis or bililary dilatation Hepatitis panel (Negative) UDS negative AST: 53 Status: Acute (5) Sore throat Assessment & Plan: Resolved Chest X-ray: No evidence of active disease Group A Beta Strep Ag : Negative Group B strep antigen : Negative S. Pneumoniae Anitgen : Negative Status: Acute (6) Prophylactic measure Assessment & Plan: Florastor 250mg PO BID Status: Acute <Bismark Rivas - Last Filed: 01/16/17 15:34> Objective - Vital Signs/Intake and Output Vital Signs (last 24 hours): Temp Pulse Resp BP Pulse Ox 98 F 80 20 102/63 99 12/10/16 16:00 12/10/16 16:00 12/10/16 16:00 12/10/16 16:00 12/10/16 16:00 - Labs Labs: 12/10/16 08:16 12/10/16 08:16 PT 12.5 SECONDS (9.7-12.2) H 12/06/16 18:49 INR 1.1 12/06/16 18:49 APTT 52 SECONDS (21-34) H 12/05/16 22:36 Attending/Attestation - Attestation I have personally seen and examined this patient.: Yes I have fully participated in the care of the patient.: Yes I have reviewed all pertinent clinical information, including history, physical exam and plan: Yes Notes (Text): Patient seen and examined with the resident. Agree with the residents evaluation, assessment and plan. (1) Fever (2) Encephalitis (3) Neutropenic fever (4) Transaminitis
--- NOTE | 2016-12-08 11:47 | US ---
HISTORY: Abnormal vaginal bleeding COMPARISON: None available. TECHNIQUE: Transabdominal and transvaginal FINDINGS: UTERUS: Measures 8.3 x 4.5 x 5.0 cm. No uterine mass. ENDOMETRIUM: Measures 4 mm in diameter. Unremarkable. CERVIX: Unremarkable RIGHT OVARY: Measures 2.9 x 2.0 x 3.1 cm. No solid mass. Normal flow. Mildly complex cyst with internal septation, 1.8 x 1.5 x 1.5 cm. Smaller simple cysts, likely physiologic, 6 x 8 x 10 mm. LEFT OVARY: Measures 3.3 x 2.0 x 2.6 cm. No solid mass. Normal flow. Possible corpus luteum, 8 x 9 x 10 mm. Characteristic peripheral hypervascularity noted. FREE FLUID: No significant free fluid noted. OTHER FINDINGS: None. IMPRESSION: Unremarkable uterus. Mildly complex right ovarian cyst, 1.8 cm. 10 mm right ovarian cyst, likely physiologic. 10 mm left ovarian cyst, possibly corpus luteum. No additional abnormality.
--- NOTE | 2016-12-08 16:49 | CP.PCM.PN ---
Subjective - Date & Time of Evaluation Date of Evaluation: 12/08/16 Time of Evaluation: 05:00 - Subjective Subjective: feels better wbc increasing off bactrim Objective - Vital Signs/Intake and Output Vital Signs (last 24 hours): Temp Pulse Resp BP Pulse Ox 97.8 F 60 20 94/56 L 99 12/08/16 15:00 12/08/16 15:00 12/08/16 15:00 12/08/16 15:00 12/08/16 15:00 Intake and Output: 12/08/16 12/08/16 06:59 18:59 Intake Total 2290 1100 Balance 2290 1100 - Medications Medications: Current Medications Acetaminophen/Butalbital/Caffeine (Fioricet) 1 tab PO Q6 PRN PRN Reason: headache Last Admin: 12/08/16 14:52 Dose: 1 tab Acyclovir (Zovirax) 800 mg PO TID [facility] Sodium Chloride (Sodium Chloride 0.9%) 1,000 mls @ 100 mls/hr IV .Q10H [facility] Last Admin: 12/08/16 07:15 Dose: 100 mls/hr Ceftriaxone Sodium 1 gm/ (Sodium Chloride) 100 mls @ 100 mls/hr IVPB DAILY [facility] Saccharomyces Boulardii (Florastor) 250 mg PO BID [facility] Last Admin: 12/08/16 10:00 Dose: 250 mg - Labs Labs: 12/08/16 06:20 12/08/16 06:20 PT 12.5 SECONDS (9.7-12.2) H 12/06/16 18:49 INR 1.1 12/06/16 18:49 APTT 52 SECONDS (21-34) H 12/05/16 22:36 - Constitutional Appears: Non-toxic, Cachectic, Chronically Ill - Head Exam Head Exam: NORMOCEPHALIC - Eye Exam Eye Exam: PERRL. absent: Scleral icterus - ENT Exam ENT Exam: Mucous Membranes Dry, Normal External Ear Exam - Neck Exam Neck Exam: absent: Lymphadenopathy - Respiratory Exam Respiratory Exam: Decreased Breath Sounds - Cardiovascular Exam Cardiovascular Exam: REGULAR RHYTHM - GI/Abdominal Exam GI & Abdominal Exam: Distended, Soft. absent: Tenderness - Rectal Exam Rectal Exam: Deferred - Exam Exam: NORMAL INSPECTION - Extremities Exam Extremities Exam: absent: Calf Tenderness, Pedal Edema - Back Exam Back Exam: absent: CVA tenderness (L), CVA tenderness (R) Assessment and Plan (1) Decreased white blood cell count Status: Acute (2) Fever Status: Acute (3) Headache Status: Acute (4) Neutropenia Status: Acute (5) SIRS (systemic inflammatory response syndrome) Status: Acute
--- NOTE | 2016-12-08 20:30 | CP.PCM.PN ---
Subjective - Date & Time of Evaluation Date of Evaluation: 12/08/16 Time of Evaluation: 17:00 - Subjective Subjective: No complaints. Objective - Vital Signs/Intake and Output Vital Signs (last 24 hours): Temp Pulse Resp BP Pulse Ox 97.8 F 60 20 94/56 L 99 12/08/16 15:00 12/08/16 15:00 12/08/16 15:00 12/08/16 15:00 12/08/16 15:00 Intake and Output: 12/08/16 12/09/16 18:59 06:59 Intake Total 1100 Balance 1100 - Medications Medications: Current Medications Acetaminophen/Butalbital/Caffeine (Fioricet) 1 tab PO Q6 PRN PRN Reason: headache Last Admin: 12/08/16 14:52 Dose: 1 tab Acyclovir (Zovirax) 800 mg PO TID [facility] Last Admin: 12/08/16 17:47 Dose: 800 mg Sodium Chloride (Sodium Chloride 0.9%) 1,000 mls @ 100 mls/hr IV .Q10H [facility] Last Admin: 12/08/16 17:47 Dose: 100 mls/hr Ceftriaxone Sodium 1 gm/ (Sodium Chloride) 100 mls @ 100 mls/hr IVPB DAILY [facility] Saccharomyces Boulardii (Florastor) 250 mg PO BID [facility] Last Admin: 12/08/16 17:46 Dose: 250 mg - Labs Labs: 12/08/16 06:20 12/08/16 06:20 PT 12.5 SECONDS (9.7-12.2) H 12/06/16 18:49 INR 1.1 12/06/16 18:49 APTT 52 SECONDS (21-34) H 12/05/16 22:36 - Head Exam Head Exam: ATRAUMATIC - Eye Exam Eye Exam: Normal appearance - ENT Exam ENT Exam: Mucous Membranes Dry - Respiratory Exam Respiratory Exam: NORMAL BREATHING PATTERN - Cardiovascular Exam Cardiovascular Exam: +S1, +S2 - GI/Abdominal Exam GI & Abdominal Exam: Normal Bowel Sounds - Extremities Exam Extremities Exam: Normal Inspection Assessment and Plan (1) Neutropenia Assessment & Plan: severe neutropenia ?Bactrim related s/p bone marrow biopsy neutropenic precautions Status: Acute (2) Thrombocytopenia Assessment & Plan: improving Status: Acute
[2016-12-09] MEDS: Sodium Chloride 0.9% 1,000 ML IV SCH (03:34)
[2016-12-09 07:45] LABS: BASO % 0.3 % (0.0-2.0); EOS # 0.1 K/uL (0.0-0.7); EOS % 2.8 % (0.0-4.0); HEMATOCRIT 37.3 % (34.0-47.0); LYMPH % 78.8 % (20.0-40.0); MEAN CELL VOLUME 95.1 fL (81.0-99.0); MEAN CORPUSCULAR HEMOGLOBIN 31.1 pg (27.0-31.0); MEAN CORPUSCULAR HGB CONC 32.7 g/dL (33.0-37.0); MEAN PLATELET VOLUME 10.1 fL (7.2-11.7); MONO # 0.3 K/uL (0.0-0.8); MONO % 8.1 % (0.0-10.0); NRBC % 0.3 % (0.0-2.0); PLATELET COUNT 122 K/uL (130-400); RED CELL DISTRIBUTION WIDTH 13.3 % (11.5-14.5)
--- NOTE | 2016-12-09 07:47 | CP.PCM.PN ---
<AraNitin R - Last Filed: 12/09/16 07:44> Subjective - Date & Time of Evaluation Date of Evaluation: 12/09/16 Time of Evaluation: 02:00 - Subjective Subjective: Medicine Note (PGY1) : Dr. Rivas's Service Patient was seen and examined in ED. Patient states she is doing better. Patient reports that fioricet has alleviated her headache's symptoms moderately. Patient denies photophobia, malaise, neck pain, fever, chills, nausea, vomiting, diarrhea, abd pain. Patient reports that she is doing better. Objective - Vital Signs/Intake and Output Vital Signs (last 24 hours): Temp Pulse Resp BP Pulse Ox 97.2 F L 61 18 94/59 L 97 12/09/16 00:02 12/09/16 00:02 12/09/16 00:02 12/09/16 00:02 12/09/16 00:02 Intake and Output: 12/09/16 12/09/16 06:59 18:59 Intake Total 2190 Balance 2190 - Medications Medications: Current Medications Acetaminophen/Butalbital/Caffeine (Fioricet) 1 tab PO Q6 PRN PRN Reason: headache Last Admin: 12/08/16 14:52 Dose: 1 tab Acyclovir (Zovirax) 800 mg PO TID [facility] Last Admin: 12/08/16 17:47 Dose: 800 mg Sodium Chloride (Sodium Chloride 0.9%) 1,000 mls @ 100 mls/hr IV .Q10H [facility] Last Admin: 12/09/16 03:34 Dose: 100 mls/hr Ceftriaxone Sodium 1 gm/ (Sodium Chloride) 100 mls @ 100 mls/hr IVPB DAILY [facility] Saccharomyces Boulardii (Florastor) 250 mg PO BID [facility] Last Admin: 12/08/16 17:46 Dose: 250 mg - Labs Labs: 12/08/16 06:20 12/08/16 06:20 PT 12.5 SECONDS (9.7-12.2) H 12/06/16 18:49 INR 1.1 12/06/16 18:49 APTT 52 SECONDS (21-34) H 12/05/16 22:36 - Constitutional Appears: Well - Head Exam Head Exam: ATRAUMATIC, NORMAL INSPECTION, NORMOCEPHALIC - Eye Exam Eye Exam: EOMI, Normal appearance, PERRL - ENT Exam ENT Exam: Mucous Membranes Moist, Normal Exam - Neck Exam Neck Exam: Full ROM, Normal Inspection. absent: Lymphadenopathy - Respiratory Exam Respiratory Exam: Clear to Ausculation Bilateral, NORMAL BREATHING PATTERN - Cardiovascular Exam Cardiovascular Exam: REGULAR RHYTHM, +S1, +S2. absent: Murmur - GI/Abdominal Exam GI & Abdominal Exam: Soft, Normal Bowel Sounds. absent: Tenderness - Rectal Exam Rectal Exam: Deferred - Extremities Exam Extremities Exam: Full ROM, Normal Capillary Refill, Normal Inspection. absent : Joint Swelling, Pedal Edema - Neurological Exam Neurological Exam: Alert, Awake, Oriented x3 - Psychiatric Exam Psychiatric exam: Normal Affect, Normal Mood - Skin Skin Exam: Dry, Intact, Normal Color, Warm Assessment and Plan - Assessment and Plan (Free Text) Assessment: (1) Fever Assessment & Plan: Afebrile (12/07/16 at 98) ---> continues to be afebrile Hematology and Oncology Consult (Dr. Fountain) ---> help appreciated * Pending Bone marrow procedure's result Neurology consult (Dr. Jerica Acevedo): As per neurology, headache is secondary to a viral prodrome not bacterial meningitis * ASA 81MG PO daily * Monitor electrolytes and correct accordingly * Fioricet 1-2 tab at acute onset of headache prn - Started on Fioricet 1 tab Q6H Infectious disease consult (Dr. Hernandez)---> help appreciated * No evidence of encephalopathy at this time * may d/c antibiotics if cultures negative Neutropenic precautions: * HIV (Negative) * Hepatitis panel (Negative) * Influenza (Negative) * H. Influenza (Negative) * Meningitis (Negative) * ESR (1), CRP(5.92), LDH(875) Lumbar Puncture in the ED: ( Negative) CT Head: Negative for Intracranial hemorrhage, mass or edema and no atrophy chronic microvascular Chest X-ray: No evidence of active disease IV fluids: NS 1000ml @100cc/hr Acetaminophen 650mg PO Q6 prn Acyclovir 500mg IV q8h Rocephin 2mg Q12H Vancomycin 1000mg IVBP Q12H Status: Acute (2) Encephalitis Assessment & Plan: CT Head: Negative for Intracranial hemorrhage, mass or edema Neurology consult (Dr. Jerica Acevedo): * As per neurology, headache is secondary to a viral prodrome not bacterial meningitis * ASA 81MG PO daily * Monitor electrolytes and correct accordingly * Fioricet 1-2 tab at acute onset of headache prn - started today at 1 tab q6h * Patient continues to be oriented to time, place, people. Status: Acute (3) Neutropenic fever Assessment & Plan: Ongoing, neutropenia, pancytopenia is severe but remains Afebrile Hematology and Oncology consulted (Dr. Fountain)---> Help appreciated * Bone marrow procedure (12/07/16) Infectious disease consult (Dr. Hernandez)---> help appreciated * No evidence of encephalopathy at this time * may d/c antibiotics if cultures negative HIV (Negative) Hepatitis panel (Negative) Influenza (Negative) H. Influenza (Negative) Meningitis (Negative) ESR (1), CRP(5.92), LDH(875) Patient recently completed a week course of Bactrim for Ovarian cyst Pending blood culture results, l Lactic acid: 1.0 Procalcitonin: <0.05 UA: negative for UTI Status: Acute (4) Transaminitis Assessment & Plan: Abdominal US: The gall bladder is partially contracted. No Cholelithiasis or bililary dilatation Hepatitis panel (Negative) UDS negative AST: 53 Status: Acute (5) Sore throat Assessment & Plan: Resolved Chest X-ray: No evidence of active disease Group A Beta Strep Ag : Negative Group B strep antigen : Negative S. Pneumoniae Anitgen : Negative Status: Acute (6) Prophylactic measure Assessment & Plan: Florastor 250mg PO BID Status: Acute <Bismark Rivas - Last Filed: 01/16/17 15:35> Objective - Vital Signs/Intake and Output Vital Signs (last 24 hours): Temp Pulse Resp BP Pulse Ox 98 F 80 20 102/63 99 12/10/16 16:00 12/10/16 16:00 12/10/16 16:00 12/10/16 16:00 12/10/16 16:00 - Labs Labs: 12/10/16 08:16 12/10/16 08:16 PT 12.5 SECONDS (9.7-12.2) H 12/06/16 18:49 INR 1.1 12/06/16 18:49 APTT 52 SECONDS (21-34) H 06/27/17 22:36 Attending/Attestation - Attestation I have personally seen and examined this patient.: Yes I have fully participated in the care of the patient.: Yes I have reviewed all pertinent clinical information, including history, physical exam and plan: Yes Notes (Text): Patient seen and examined with the resident. Agree with the residents evaluation, assessment and plan. (1) Fever (2) Encephalitis (3) Neutropenic fever (4) Transaminitis
[2016-12-09 07:55] LABS: CHLORIDE 100 mmol/L (98-107); POTASSIUM 3.9 mmol/L (3.6-5.2); SODIUM 137 mmol/L (132-148); WHITE BLOOD COUNT 3.8 K/uL (4.8-10.8)
[2016-12-09 07:57] LABS: GFR AFRICAN-AMERICAN > 60
[2016-12-09 07:58] LABS: ALKALINE PHOSPHATASE 43 U/L (38-126); ALT/SGPT 65 U/L (9-52); AST/SGOT 99 U/L (14-36); BILIRUBIN,TOTAL 0.2 mg/dL (0.2-1.3); BLOOD UREA NITROGEN 6 mg/dL (7-17); CALCIUM 8.4 mg/dl (8.6-10.4); CARBON DIOXIDE 29 mmol/L (22-30); GLUCOSE,RANDOM 92 mg/dL (65-105); PHOSPHOROUS 3.7 mg/dL (2.5-4.5)
[2016-12-09 07:59] LABS: MAGNESIUM 1.8 mg/dL (1.6-2.3)
[2016-12-09] MEDS: Saccharomyces Boulardi 250 mg Cap PO SCH (09:19)
[2016-12-09 11:12] LABS: EOSINOPHIL 2 % (0-4); NEUTROPHIL 7 % (50-75); TOTAL CELLS COUNTED 100
[2016-12-09 20:15] LABS: HEPARIN-IND PLATELET AB Negative (Negative); RESULT Negative (Negative)
[2016-12-10 00:05] VITALS: RESP 20
[2016-12-10] MEDS: Sodium Chloride 0.9% 1,000 ML IV SCH ×2 (00:32→12:53)
[2016-12-10 00:47] LABS: SPECIMEN SOURCE Serum
--- NOTE | 2016-12-10 03:29 | CP.PCM.PN ---
Subjective - Date & Time of Evaluation Date of Evaluation: 12/09/16 Time of Evaluation: 17:00 - Subjective Subjective: Feeling better Objective - Vital Signs/Intake and Output Vital Signs (last 24 hours): Temp Pulse Resp BP Pulse Ox 97.9 F 61 20 96/61 L 98 12/10/16 00:01 12/10/16 00:01 12/10/16 00:01 12/10/16 00:01 12/10/16 00:01 Intake and Output: 12/09/16 12/10/16 18:59 06:59 Intake Total 1100 Output Total 600 Balance 500 - Medications Medications: Current Medications Acetaminophen/Butalbital/Caffeine (Fioricet) 1 tab PO Q6 PRN PRN Reason: headache Last Admin: 12/08/16 14:52 Dose: 1 tab Acyclovir (Zovirax) 800 mg PO TID [facility] Last Admin: 12/09/16 09:19 Dose: 800 mg Ceftriaxone Sodium 1 gm/ (Sodium Chloride) 100 mls @ 100 mls/hr IVPB DAILY [facility] Last Admin: 12/09/16 09:46 Dose: 100 mls/hr Saccharomyces Boulardii (Florastor) 250 mg PO BID [facility] Last Admin: 12/09/16 09:19 Dose: 250 mg - Labs Labs: 12/09/16 07:26 12/09/16 07:26 PT 12.5 SECONDS (9.7-12.2) H 12/06/16 18:49 INR 1.1 12/06/16 18:49 APTT 52 SECONDS (21-34) H 12/05/16 22:36 - Head Exam Head Exam: ATRAUMATIC - Eye Exam Eye Exam: Normal appearance - ENT Exam ENT Exam: Mucous Membranes Dry - Respiratory Exam Respiratory Exam: NORMAL BREATHING PATTERN - Cardiovascular Exam Cardiovascular Exam: +S1, +S2 - GI/Abdominal Exam GI & Abdominal Exam: Normal Bowel Sounds - Extremities Exam Extremities Exam: Normal Inspection Assessment and Plan (1) Neutropenia Assessment & Plan: ?Bactrim f/u bone marrow biopsy results Status: Acute (2) Thrombocytopenia Assessment & Plan: improving Status: Acute
[2016-12-10 08:26] LABS: BASO % 0.3 % (0.0-2.0); EOS % 1.1 % (0.0-4.0); HEMATOCRIT 37.6 % (34.0-47.0); LYMPH # 3.2 K/uL (1.0-4.3); LYMPH % 76.6 % (20.0-40.0); MEAN CELL VOLUME 95.2 fL (81.0-99.0); MEAN CORPUSCULAR HEMOGLOBIN 30.7 pg (27.0-31.0); MEAN CORPUSCULAR HGB CONC 32.3 g/dL (33.0-37.0); MONO # 0.5 K/uL (0.0-0.8); MONO % 11.2 % (0.0-10.0); NRBC % 0.1 % (0.0-2.0); PLATELET COUNT 131 K/uL (130-400); RED CELL DISTRIBUTION WIDTH 13.2 % (11.5-14.5); WHITE BLOOD COUNT 4.1 K/uL (4.8-10.8)
[2016-12-10 08:56] LABS: CHLORIDE 104 mmol/L (98-107); POTASSIUM 3.9 mmol/L (3.6-5.2); SODIUM 140 mmol/L (132-148)
[2016-12-10 08:58] LABS: AST/SGOT 340 U/L (14-36); BILIRUBIN,TOTAL 0.4 mg/dL (0.2-1.3); CARBON DIOXIDE 31 mmol/L (22-30); GFR AFRICAN-AMERICAN > 60
[2016-12-10 08:59] LABS: ALB/GLOB RATIO 1.1 (1.0-2.1); ALKALINE PHOSPHATASE 37 U/L (38-126); ALT/SGPT 205 U/L (9-52); BLOOD UREA NITROGEN 5 mg/dL (7-17); CALCIUM 8.4 mg/dl (8.6-10.4); GLUCOSE,RANDOM 91 mg/dL (65-105); PHOSPHOROUS 3.2 mg/dL (2.5-4.5)
[2016-12-10] MEDS: Saccharomyces Boulardi 250 mg Cap PO SCH (09:41)
[2016-12-10] MEDS: Apap-Butalbital-Caffeine 325-50-40mg Tab PO PRN (09:55)
[2016-12-10 10:32] LABS: NEUTROPHIL 11 % (50-75); TOTAL CELLS COUNTED 100
--- NOTE | 2016-12-10 15:08 | CP.PCM.PN ---
Subjective - Date & Time of Evaluation Date of Evaluation: 12/10/16 Time of Evaluation: 09:00 - Subjective Subjective: increasing LFT's consider HIV PCR as well as follow up heatitis panel in 3 weeks Rocephin held as LFT's increasing and cultures negative Objective - Vital Signs/Intake and Output Vital Signs (last 24 hours): Temp Pulse Resp BP Pulse Ox 97.7 F 67 20 96/55 L 100 12/10/16 08:00 12/10/16 08:00 12/10/16 08:00 12/10/16 08:00 12/10/16 08:00 Intake and Output: 12/10/16 12/10/16 06:59 18:59 Intake Total 1100 1040 Output Total 600 Balance 500 1040 - Medications Medications: Current Medications Acetaminophen/Butalbital/Caffeine (Fioricet) 1 tab PO Q6 PRN PRN Reason: headache Last Admin: 12/10/16 09:55 Dose: 1 tab Heparin Sodium (Porcine) (Heparin) 5,000 units SC Q8 [facility] Last Admin: 12/10/16 13:26 Dose: 5,000 units Ceftriaxone Sodium 1 gm/ (Sodium Chloride) 100 mls @ 100 mls/hr IVPB DAILY [facility] Last Admin: 12/10/16 09:42 Dose: 100 mls/hr Saccharomyces Boulardii (Florastor) 250 mg PO BID [facility] Last Admin: 12/10/16 09:41 Dose: 250 mg - Labs Labs: 12/10/16 08:16 12/10/16 08:16 PT 12.5 SECONDS (9.7-12.2) H 12/06/16 18:49 INR 1.1 12/06/16 18:49 APTT 52 SECONDS (21-34) H 12/05/16 22:36 Assessment and Plan (1) Decreased white blood cell count Status: Acute (2) Fever Status: Acute (3) Headache Status: Acute (4) Neutropenia Status: Acute (5) SIRS (systemic inflammatory response syndrome) Status: Acute
[2016-12-10 17:20] VITALS: BP 102/63; PULSE 80; TEMP 98; O2SAT 99
--- NOTE | 2016-12-10 18:14 | CP.PCM.DIS ---
<Alphonso Frances E - Last Filed: 12/10/16 21:43> Provider - Provider Date of Admission: 12/06/16 05:00 Attending physician: Kanika Jalloh DO Time Spent in preparation of Discharge (in minutes): 45 Diagnosis - Discharge Diagnosis (1) Fever Status: Acute (2) Encephalitis Status: Acute (3) Neutropenic fever Status: Acute (4) Transaminitis Status: Acute (5) Sore throat Status: Acute (6) Prophylactic measure Status: Acute Hospital Course - Lab Results Lab Results: Micro Results 12/06/16 15:25 Blood Blood Culture - Preliminary NO GROWTH AFTER 4 DAYS Most Recent Lab Values WBC 4.1 K/uL (4.8-10.8) L 12/10/16 08:16 RBC 3.95 Mil/uL (3.80-5.20) 12/10/16 08:16 Hgb 12.1 g/dL (11.0-16.0) 12/10/16 08:16 Hct 37.6 % (34.0-47.0) 12/10/16 08:16 MCV 95.2 fL (81.0-99.0) 12/10/16 08:16 MCH 30.7 pg (27.0-31.0) 12/10/16 08:16 MCHC 32.3 g/dL (33.0-37.0) L 12/10/16 08:16 RDW 13.2 % (11.5-14.5) 12/10/16 08:16 Plt Count 131 K/uL (130-400) 12/10/16 08:16 MPV 10.0 fL (7.2-11.7) 12/10/16 08:16 Neut % (Auto) 10.8 % (50.0-75.0) L 12/10/16 08:16 Lymph % (Auto) 76.6 % (20.0-40.0) H 12/10/16 08:16 Catron % (Auto) 11.2 % (0.0-10.0) H 12/10/16 08:16 Eos % (Auto) 1.1 % (0.0-4.0) 12/10/16 08:16 Baso % (Auto) 0.3 % (0.0-2.0) 12/10/16 08:16 Neut # 0.4 K/uL (1.8-7.0) L 12/10/16 08:16 Lymph # 3.2 K/uL (1.0-4.3) 12/10/16 08:16 Catron # 0.5 K/uL (0.0-0.8) 12/10/16 08:16 Eos # 0.0 K/uL (0.0-0.7) 12/10/16 08:16 Baso # 0.0 K/uL (0.0-0.2) 12/10/16 08:16 Neutrophils % (Manual) 11 % (50-75) L 12/10/16 08:16 Band Neutrophils % 2 % (0-2) 12/10/16 08:16 Lymphocytes % (Manual) 77 % (20-40) H 12/10/16 08:16 Monocytes % (Manual) 10 % (0-10) 12/10/16 08:16 Eosinophils % (Manual) 2 % (0-4) 12/09/16 07:26 Differential Comment 12/06/16 13:18 Platelet Estimate Normal (NORMAL) 12/10/16 08:16 RBC Morphology Normal 12/10/16 08:16 Freedom Cells Slight 12/09/16 07:26 Smear Path Review 12/05/16 22:36 ESR 1 mm/hr (0-20) 12/06/16 15:26 PT 12.5 SECONDS (9.7-12.2) H 12/06/16 18:49 INR 1.1 12/06/16 18:49 APTT 52 SECONDS (21-34) H 12/05/16 22:36 Hep-Marbella Thrombocytopen Negative (Negative) 12/06/16 18:49 pO2 22 mm/Hg (30-55) L 12/05/16 22:38 VBG pH 7.35 (7.32-7.43) 12/05/16 22:38 VBG pCO2 48 mmHg (40-60) 12/05/16 22:38 VBG HCO3 23.4 mmol/L 12/05/16 22:38 VBG Total CO2 28.0 mmol/L (22-28) 12/05/16 22:38 VBG O2 Sat (Calc) 42.8 % (40-65) 12/05/16 22:38 VBG Base Excess 0.3 mmol/L (0.0-2.0) 12/05/16 22:38 VBG Potassium 3.8 mmol/L (3.6-5.2) 12/05/16 22:38 Sodium 131.0 mmol/l (132-148) L 12/05/16 22:38 Chloride 97.0 mmol/L (98-107) L 12/05/16 22:38 Glucose 94 mg/dl (65-105) 12/05/16 22:38 Lactate 1.9 mmol/L (0.7-2.1) 12/05/16 22:38 Sodium 140 mmol/L (132-148) 12/10/16 08:16 Potassium 3.9 mmol/L (3.6-5.2) 12/10/16 08:16 Chloride 104 mmol/L (98-107) 12/10/16 08:16 Carbon Dioxide 31 mmol/L (22-30) H 12/10/16 08:16 Anion Gap 9 (10-20) L 12/10/16 08:16 BUN 5 mg/dL (7-17) L 12/10/16 08:16 Creatinine 0.8 MG/DL (0.7-1.2) 12/10/16 08:16 Est GFR ( Amer) > 60 12/10/16 08:16 Est GFR (Non-Af Amer) > 60 12/10/16 08:16 Random Glucose 91 mg/dL (65-105) 12/10/16 08:16 Lactic Acid 1.0 mmol/L (0.7-2.1) 12/06/16 15:26 Calcium 8.4 mg/dl (8.6-10.4) L 12/10/16 08:16 Phosphorus 3.2 mg/dL (2.5-4.5) 12/10/16 08:16 Magnesium 2.0 mg/dL (1.6-2.3) 12/10/16 08:16 Total Bilirubin 0.4 mg/dL (0.2-1.3) 12/10/16 08:16 AST 340 U/L (14-36) H D 12/10/16 08:16 ALT 205 U/L (9-52) H D 12/10/16 08:16 Alkaline Phosphatase 37 U/L (38-126) L 12/10/16 08:16 Lactate Dehydrogenase 875 U/L (313-618) H 12/06/16 15:32 C-React Prot High Sens 5.92 mg/L (1.00-3.00) H 12/06/16 17:10 Total Protein 6.0 g/dL (6.3-8.3) L 12/10/16 08:16 Albumin 3.2 g/dL (3.5-5.0) L 12/10/16 08:16 Globulin 2.9 gm/dL (2.2-3.9) 12/10/16 08:16 Albumin/Globulin Ratio 1.1 (1.0-2.1) 12/10/16 08:16 Procalcitonin < 0.05 NG/ML (0.19-0.49) L 12/06/16 18:49 Venous Blood Potassium 3.8 mmol/L (3.6-5.2) 12/05/16 22:38 Urine Color Straw (YELLOW) 12/07/16 06:08 Urine Clarity Clear (Clear) 12/07/16 06:08 Urine pH 6.0 (5.0-8.0) 12/07/16 06:08 Ur Specific [place] 1.005 (1.003-1.030) 12/07/16 06:08 Urine Protein Negative mg/dL (NEGATIVE) 12/07/16 06:08 Urine Glucose (UA) Normal mg/dL (Normal) 12/07/16 06:08 Urine Ketones Negative mg/dL (NEGATIVE) 12/07/16 06:08 Urine Blood 2+ (NEGATIVE) H 12/07/16 06:08 Urine Nitrate Negative (NEGATIVE) 12/07/16 06:08 Urine Bilirubin Negative (NEGATIVE) 12/07/16 06:08 Urine Urobilinogen Normal mg/dL (0.2-1.0) 12/07/16 06:08 Ur Leukocyte Esterase Neg Yohana/uL (Negative) 12/07/16 06:08 Urine WBC (Auto) 1 /hpf (0-5) 12/07/16 06:08 Urine RBC (Auto) < 1 /hpf (0-3) 12/07/16 06:08 Ur Squamous Epith Cells 6 /hpf (0-5) H 12/07/16 06:08 Urine Bacteria Rare (<OCC) 12/07/16 06:08 Urine Osmolality 513 mosm/kg (300-1000) 12/06/16 15:31 Ur Random Sodium 167 mmol/L 12/06/16 15:31 Urine Chloride 50 mmol/L (32-290) 12/07/16 07:05 Urine HCG, Qual Negative (NEGATIVE) 12/05/16 22:27 Fluid Type Spinal fluid 12/06/16 01:02 CSF Volume 9 mL (0-1) H 12/06/16 01:02 CSF Appearance Clear/colorless (CLEAR) 12/06/16 01:02 CSF WBC 9.0 /mm3 (0.0-5.0) H 12/06/16 01:02 CSF RBC 1.0 /mm3 (0.0-0.0) H 12/06/16 01:02 CSF Total Cell Counted 10 (0-0) H 12/06/16 01:02 CSF Neutrophils 3 % (0-0) H 12/06/16 01:02 CSF Lymphocytes 87.0 % (0-0) H 12/06/16 01:02 CSF Monos/Macrophages 10 % (0-0) H 12/06/16 01:02 CSF Comment Clear 12/06/16 01:02 CSF Glucose 70 mg/dL (40-70) 12/06/16 01:02 CSF Total Protein 35.0 mg/dL (12-60) 12/06/16 01:02 Vancomycin Trough 11.8 ug/mL (5.0-10.0) H 12/08/16 05:46 Urine Opiates Screen Negative (NEGATIVE) 12/06/16 15:31 Urine Methadone Screen Negative (NEGATIVE) 12/06/16 15:31 Ur Barbiturates Screen Negative (NEGATIVE) 12/06/16 15:31 Ur Phencyclidine Scrn Negative (NEGATIVE) 12/06/16 15:31 Ur Amphetamines Screen Negative (NEGATIVE) 12/06/16 15:31 U Benzodiazepines Scrn Negative (NEGATIVE) 12/06/16 15:31 U Oth Cocaine Metabols Negative (NEGATIVE) 12/06/16 15:31 U Cannabinoids Screen Negative (NEGATIVE) 12/06/16 15:31 Heparin-induced Plt Ab Negative (Negative) 12/06/16 18:49 C.trachomatis RNA (TMA) Not detected (Not Detected) 12/07/16 07:06 Hepatitis A IgM Ab Negative (NEGATIVE) 12/06/16 15:26 Hep Bs Antigen Negative (NEGATIVE) 12/06/16 15:26 Hep B Core IgM Ab Negative (NEGATIVE) 12/06/16 15:26 Hepatitis C Antibody Negative (NEGATIVE) 12/06/16 15:26 HSV Source Description Serum 12/07/16 06:02 HSV I DNA PCR Not detected (Not Detected) 12/07/16 06:02 HSV II DNA PCR Not detected (Not Detected) 12/07/16 06:02 HIV 1&2 Antibody Screen Negative (NEGATIVE) 12/06/16 15:26 Infectious Catron Assay Negative (NEGATIVE) 12/07/16 06:02 Influenza Typ A,B (EIA) Negative for flu a/b (NEGATIVE) 12/06/16 16:53 H.influenzae Type B Ag Negative (NEGATIVE) 12/06/16 01:02 N.gonorrhoeae RNA (TMA) Not detected (Not Detected) 12/07/16 07:06 N.meningitidis ACY/W135 Negative (NEGATIVE) 12/06/16 01:02 N.meningi B/E.coli K1 Ag Negative (NEGATIVE) 12/06/16 01:02 Grp A Beta Strep Ag Negative (NEGATIVE) 12/05/16 22:02 Group B Strep Antigen Negative (NEGATIVE) 12/06/16 01:02 S. pneumoniae Antigen Negative (NEGATIVE) 12/06/16 01:02 - Hospital Course Hospital Course: As per admission: HPI: 46 year old female with no past medical history presented to the emergency room stating that she took he temperature at home and it was 102. She stated she has had a fever and some neck pain for about 2 days. She states this pain is crampy and the medications that were given to her in the emergency room helped with the pain. She denied headache over the past few days but admitted to a headache on examination. She denied changes in vision, cough, shortness or breath, chest pain, abd pain, nausea, diarrhea/constipation, urinary complaints , numbness or tingling in the extremities. Denied recent travel or sick contacts. She was recently taking Bactrim since last which was given to her by her OBGYN for a cyst. She denies pain or drainage from this. Hospital Course: Patient is a 46 year old female with no past medical history who presented to the ED with complaints of headache, myalgia, fever, neck pain. Patient was evaluated and then administered a CT scan and Lumbar puncture, which showed negative for Intracranial hemorrhage, mass or edema and no atrophy chronic microvascular and negative lumbar puncture, respectively. Patient's chest x-ray showed no active disease. Patient's abdmonial ultrasound showed no Cholelithiasis or bililary dilatation. Patient was the medically managed for fever and treated empirically for infection. Neurologist, Dr. Hoang was consulted, who recommended Fioricet 1-2 tab at acute onset of headache as needed. In addition, Hematology and Oncology was consulted, Dr. Fountain, who conducted a bone marrow biopsy with result still pending. Patient was cleared by all team care and is to follow up outpatient as instructed. This is a brief summary of events. For a complete course, refer to medical record. Discharge Exam - Head Exam Head Exam: ATRAUMATIC, NORMAL INSPECTION, NORMOCEPHALIC - Eye Exam Eye Exam: EOMI, Normal appearance - ENT Exam ENT Exam: Mucous Membranes Moist, Normal Exam - Respiratory Exam Respiratory Exam: Clear to PA & Lateral, NORMAL BREATHING PATTERN - Cardiovascular Exam Cardiovascular Exam: REGULAR RHYTHM, +S1, +S2 - Neurological Exam Neurological exam: Alert, Oriented x3 - Psychiatric Exam Psychiatric exam: Normal Affect, Normal Mood - Skin Skin Exam: Dry, Intact, Normal Color Discharge Plan - Discharge Medications Prescriptions: Acyclovir [Zovirax] 800 mg PO TID #30 tab Cefixime [Suprax] 400 mg PO DAILY #10 capsule - Follow Up Plan Condition: FAIR Disposition: HOME/ ROUTINE Instructions: Fever in Adults (GEN), Myelodysplastic Syndromes (DC), Myelodysplastic Syndromes (GEN) Additional Instructions: Please discharge patient home. Patient will need to complete additional 10 days of Acyclovir 800mg PO TID ( Three times a day) and Cefixime 400mg PO daily. Patient will complete doses of antibiotics on December 20, 2016 Patient will need labs done in 1 week to follow up liver function tests and white blood counts. Please starts the following new medications: 1. Acyclovir 800mg PO TID for 10 days 2. Cefixime 400mg PO daily for 10 days Please do not take Tylenol. Please take Motrin for pain or headache. Please follow up with Dr. Fountain (Hematology/Oncology physician) for bone marrow biopsy result within a week Please follow up with Dr. Jerica wright ( Neurology) within a week Please follow up with the [facility] within a week. Please return to the hospital if symptoms resume. Referrals: [facility] at [facility] [Outside] Shemar Fountain MD [Staff Provider] - Italo Wright MD [Staff Provider] - Brent Hoffman MD [Staff Provider] - <Bismark Rivas - Last Filed: 01/16/17 15:37> Provider - Provider Date of Admission: 12/06/16 05:00 Attending physician: Kanika Jalloh, Hospital Course - Lab Results Lab Results: Micro Results 12/06/16 15:25 Blood Blood Culture - Final NO GROWTH AFTER 5 DAYS 12/06/16 15:25 Blood Gram Stain - Final TEST NOT PERFORMED Most Recent Lab Values WBC 4.1 K/uL (4.8-10.8) L 12/10/16 08:16 RBC 3.95 Mil/uL (3.80-5.20) 12/10/16 08:16 Hgb 12.1 g/dL (11.0-16.0) 12/10/16 08:16 Hct 37.6 % (34.0-47.0) 12/10/16 08:16 MCV 95.2 fL (81.0-99.0) 12/10/16 08:16 MCH 30.7 pg (27.0-31.0) 12/10/16 08:16 MCHC 32.3 g/dL (33.0-37.0) L 12/10/16 08:16 RDW 13.2 % (11.5-14.5) 12/10/16 08:16 Plt Count 131 K/uL (130-400) 12/10/16 08:16 MPV 10.0 fL (7.2-11.7) 12/10/16 08:16 Neut % (Auto) 10.8 % (50.0-75.0) L 12/10/16 08:16 Lymph % (Auto) 76.6 % (20.0-40.0) H 12/10/16 08:16 Catron % (Auto) 11.2 % (0.0-10.0) H 12/10/16 08:16 Eos % (Auto) 1.1 % (0.0-4.0) 12/10/16 08:16 Baso % (Auto) 0.3 % (0.0-2.0) 12/10/16 08:16 Neut # 0.4 K/uL (1.8-7.0) L 12/10/16 08:16 Lymph # 3.2 K/uL (1.0-4.3) 12/10/16 08:16 Catron # 0.5 K/uL (0.0-0.8) 12/10/16 08:16 Eos # 0.0 K/uL (0.0-0.7) 12/10/16 08:16 Baso # 0.0 K/uL (0.0-0.2) 12/10/16 08:16 Neutrophils % (Manual) 11 % (50-75) L 12/10/16 08:16 Band Neutrophils % 2 % (0-2) 12/10/16 08:16 Lymphocytes % (Manual) 77 % (20-40) H 12/10/16 08:16 Monocytes % (Manual) 10 % (0-10) 12/10/16 08:16 Eosinophils % (Manual) 2 % (0-4) 12/09/16 07:26 Differential Comment 12/06/16 13:18 Platelet Estimate Normal (NORMAL) 12/10/16 08:16 RBC Morphology Normal 12/10/16 08:16 Freedom Cells Slight 12/09/16 07:26 Smear Path Review 12/05/16 22:36 ESR 1 mm/hr (0-20) 12/06/16 15:26 G6PD RBC Count 8.6 U/g HGB (4.6-13.5) 12/08/16 06:20 PT 12.5 SECONDS (9.7-12.2) H 12/06/16 18:49 INR 1.1 12/06/16 18:49 APTT 52 SECONDS (21-34) H 12/05/16 22:36 Hep-Marbella Thrombocytopen Negative (Negative) 12/06/16 18:49 pO2 22 mm/Hg (30-55) L 12/05/16 22:38 VBG pH 7.35 (7.32-7.43) 12/05/16 22:38 VBG pCO2 48 mmHg (40-60) 12/05/16 22:38 VBG HCO3 23.4 mmol/L 12/05/16 22:38 VBG Total CO2 28.0 mmol/L (22-28) 12/05/16 22:38 VBG O2 Sat (Calc) 42.8 % (40-65) 12/05/16 22:38 VBG Base Excess 0.3 mmol/L (0.0-2.0) 12/05/16 22:38 VBG Potassium 3.8 mmol/L (3.6-5.2) 12/05/16 22:38 Sodium 131.0 mmol/l (132-148) L 12/05/16 22:38 Chloride 97.0 mmol/L (98-107) L 12/05/16 22:38 Glucose 94 mg/dl (65-105) 12/05/16 22:38 Lactate 1.9 mmol/L (0.7-2.1) 12/05/16 22:38 Sodium 140 mmol/L (132-148) 12/10/16 08:16 Potassium 3.9 mmol/L (3.6-5.2) 12/10/16 08:16 Chloride 104 mmol/L (98-107) 12/10/16 08:16 Carbon Dioxide 31 mmol/L (22-30) H 12/10/16 08:16 Anion Gap 9 (10-20) L 12/10/16 08:16 BUN 5 mg/dL (7-17) L 12/10/16 08:16 Creatinine 0.8 MG/DL (0.7-1.2) 12/10/16 08:16 Est GFR ( Amer) > 60 12/10/16 08:16 Est GFR (Non-Af Amer) > 60 12/10/16 08:16 Random Glucose 91 mg/dL (65-105) 12/10/16 08:16 Lactic Acid 1.0 mmol/L (0.7-2.1) 12/06/16 15:26 Calcium 8.4 mg/dl (8.6-10.4) L 12/10/16 08:16 Phosphorus 3.2 mg/dL (2.5-4.5) 12/10/16 08:16 Magnesium 2.0 mg/dL (1.6-2.3) 12/10/16 08:16 Total Bilirubin 0.4 mg/dL (0.2-1.3) 12/10/16 08:16 AST 340 U/L (14-36) H D 12/10/16 08:16 ALT 205 U/L (9-52) H D 12/10/16 08:16 Alkaline Phosphatase 37 U/L (38-126) L 12/10/16 08:16 Lactate Dehydrogenase 875 U/L (313-618) H 12/06/16 15:32 C-React Prot High Sens 5.92 mg/L (1.00-3.00) H 12/06/16 17:10 Total Protein 6.0 g/dL (6.3-8.3) L 12/10/16 08:16 Albumin 3.2 g/dL (3.5-5.0) L 12/10/16 08:16 Globulin 2.9 gm/dL (2.2-3.9) 12/10/16 08:16 Albumin/Globulin Ratio 1.1 (1.0-2.1) 12/10/16 08:16 Procalcitonin < 0.05 NG/ML (0.19-0.49) L 12/06/16 18:49 Venous Blood Potassium 3.8 mmol/L (3.6-5.2) 12/05/16 22:38 Urine Color Straw (YELLOW) 12/07/16 06:08 Urine Clarity Clear (Clear) 12/07/16 06:08 Urine pH 6.0 (5.0-8.0) 12/07/16 06:08 Ur Specific [place] 1.005 (1.003-1.030) 12/07/16 06:08 Urine Protein Negative mg/dL (NEGATIVE) 12/07/16 06:08 Urine Glucose (UA) Normal mg/dL (Normal) 12/07/16 06:08 Urine Ketones Negative mg/dL (NEGATIVE) 12/07/16 06:08 Urine Blood 2+ (NEGATIVE) H 12/07/16 06:08 Urine Nitrate Negative (NEGATIVE) 12/07/16 06:08 Urine Bilirubin Negative (NEGATIVE) 12/07/16 06:08 Urine Urobilinogen Normal mg/dL (0.2-1.0) 12/07/16 06:08 Ur Leukocyte Esterase Neg Yohana/uL (Negative) 12/07/16 06:08 Urine WBC (Auto) 1 /hpf (0-5) 12/07/16 06:08 Urine RBC (Auto) < 1 /hpf (0-3) 12/07/16 06:08 Ur Squamous Epith Cells 6 /hpf (0-5) H 12/07/16 06:08 Urine Bacteria Rare (<OCC) 12/07/16 06:08 Urine Osmolality 513 mosm/kg (300-1000) 12/06/16 15:31 Ur Random Sodium 167 mmol/L 12/06/16 15:31 Urine Chloride 50 mmol/L (32-290) 12/07/16 07:05 Urine HCG, Qual Negative (NEGATIVE) 12/05/16 22:27 Fluid Type Spinal fluid 12/06/16 01:02 CSF Volume 9 mL (0-1) H 12/06/16 01:02 CSF Appearance Clear/colorless (CLEAR) 12/06/16 01:02 CSF WBC 9.0 /mm3 (0.0-5.0) H 12/06/16 01:02 CSF RBC 1.0 /mm3 (0.0-0.0) H 12/06/16 01:02 CSF Total Cell Counted 10 (0-0) H 12/06/16 01:02 CSF Neutrophils 3 % (0-0) H 12/06/16 01:02 CSF Lymphocytes 87.0 % (0-0) H 12/06/16 01:02 CSF Monos/Macrophages 10 % (0-0) H 12/06/16 01:02 CSF Comment Clear 12/06/16 01:02 CSF Glucose 70 mg/dL (40-70) 12/06/16 01:02 CSF Total Protein 35.0 mg/dL (12-60) 12/06/16 01:02 Vancomycin Trough 11.8 ug/mL (5.0-10.0) H 12/08/16 05:46 Urine Opiates Screen Negative (NEGATIVE) 12/06/16 15:31 Urine Methadone Screen Negative (NEGATIVE) 12/06/16 15:31 Ur Barbiturates Screen Negative (NEGATIVE) 12/06/16 15:31 Ur Phencyclidine Scrn Negative (NEGATIVE) 12/06/16 15:31 Ur Amphetamines Screen Negative (NEGATIVE) 12/06/16 15:31 U Benzodiazepines Scrn Negative (NEGATIVE) 12/06/16 15:31 U Oth Cocaine Metabols Negative (NEGATIVE) 12/06/16 15:31 U Cannabinoids Screen Negative (NEGATIVE) 12/06/16 15:31 Heparin-induced Plt Ab Negative (Negative) 12/06/16 18:49 KATJA UFH Low Dose 0.1 0 % Release 12/06/16 18:49 KATJA UFH Low Dose 0.5 0 % Release 12/06/16 18:49 KATJA UFH High Dose 100 0 % Release 12/06/16 18:49 C.trachomatis RNA (TMA) Not detected (Not Detected) 12/07/16 07:06 Hepatitis A IgM Ab Negative (NEGATIVE) 12/06/16 15:26 Hep Bs Antigen Negative (NEGATIVE) 12/06/16 15:26 Hep B Core IgM Ab Negative (NEGATIVE) 12/06/16 15:26 Hepatitis C Antibody Negative (NEGATIVE) 12/06/16 15:26 HSV Source Description Serum 12/07/16 06:02 HSV I DNA PCR Not detected (Not Detected) 12/07/16 06:02 HSV II DNA PCR Not detected (Not Detected) 12/07/16 06:02 HIV-1 RNA Qnt (RT-PCR) <1.30 not detected (<1.30) 12/10/16 17:27 HIV 1&2 Antibody Screen Negative (NEGATIVE) 12/06/16 15:26 Infectious Catron Assay Negative (NEGATIVE) 12/07/16 06:02 Influenza Typ A,B (EIA) Negative for flu a/b (NEGATIVE) 12/06/16 16:53 H.influenzae Type B Ag Negative (NEGATIVE) 12/06/16 01:02 N.gonorrhoeae RNA (TMA) Not detected (Not Detected) 12/07/16 07:06 N.meningitidis ACY/W135 Negative (NEGATIVE) 12/06/16 01:02 N.meningi B/E.coli K1 Ag Negative (NEGATIVE) 12/06/16 01:02 Parvovirus B19 IgG Ab 7.6 (<0.9) H 12/08/16 17:22 Parvovirus B19 IgM Ab 0.1 (<0.9) 12/08/16 17:22 Parvovirus Interpret (()) 12/08/16 17:22 Grp A Beta Strep Ag Negative (NEGATIVE) 12/05/16 22:02 Group B Strep Antigen Negative (NEGATIVE) 12/06/16 01:02 S. pneumoniae Antigen Negative (NEGATIVE) 12/06/16 01:02 Attending/Attestation - Attestation I have personally seen and examined this patient.: Yes I have fully participated in the care of the patient.: Yes I have reviewed all pertinent clinical information, including history, physical exam and plan: Yes
[2016-12-11 17:23] LABS: UFH SRA RESULT Negative (Negative)
[2016-12-14 14:02] LABS: PARVOVIRUS B19 AB (IGG) 7.6 (<0.9); PARVOVIRUS B19 AB (IGM) 0.1 (<0.9)
== END 2016-12-10 17:50 | disposition home or self-care (01) | DRG 584 ==
LOC: C.ER 21:04 → C.9E 12-06 05:00 → C.3T 12-06 18:59 → C.9E 12-06 19:02 → C.3T 12-06 19:04
PROVIDERS: ADMIT Internal Medicine; ATTEND Hospitalist
PROC: 009U3ZX Drainage of Spinal Canal, Percutaneous Approach, Diagnostic (ICD-10-PCS; principal; 2016-12-06)
PROC: 07DR3ZX Extraction of Iliac Bone Marrow, Percutaneous Approach, Diagnostic (ICD-10-PCS; 2016-12-07)
DX: A41.9 Sepsis, unspecified organism (principal); G04.90 Encephalitis and encephalomyelitis, unspecified; D61.818 Other pancytopenia; E66.01 Morbid (severe) obesity due to excess calories; D75.82 Heparin induced thrombocytopenia (HIT); B34.9 Viral infection, unspecified; R65.20 Severe sepsis without septic shock; N89.8 Other specified noninflammatory disorders of vagina; J02.9 Acute pharyngitis, unspecified; T45.515A Adverse effect of anticoagulants, initial encounter